=== PATIENT | female | born 1975 | race African-American/Black ===

== ENCOUNTER 2017-05-08 15:51 | Observation (INO) | payer OTHER ==
[2017-05-08] VITALS (9 sets, daily range): BP systolic 177–235; BP diastolic 83–125; PULSE 77–106; RESP 13–22; TEMP 99.3; O2SAT 93–98
[~2017-05-08 15:51] MED LIST: AMLO10 PO; CLON0.2T PO; HYDR25TA5 PO; LISI40TA PO; METO-309 PO; METR0.7528 VAGINAL; VENTAER INH
[2017-05-08] MEDS ORDERED: IOHEXOL 350 MG/ML 10 ML VIAL (for RAD DIAG) IVCONTRAST ONE (15:52)
[2017-05-08] MEDS ORDERED: SODIUM CHLORIDE 0.9% FLUSH 10 ML FLUSH IVF PRN (16:15)
[2017-05-08] MEDS ORDERED: methylPREDNISolone SOD SUCC 125 MG/2 ML VIAL IV PUSH ONE (16:15)
[2017-05-08] MEDS ORDERED: RESP: ALBUTEROL 2.5 MG/IPRATROPIUM 0.5 MG NEB (SCH) NEB ONE (16:15)
--- NOTE | 2017-05-08 16:41 | PD ---
HPI Chief Complaint: Respiratory Symptoms Time Seen by Provider: 16:12 Travel History International Travel<30 days: No Contact w/Intl Traveler<30days: No Traveled to known affect area: No History of Present Illness HPI Patient is a 41 year old female presents to the ER for evaluation of SOB. Patient states was told had a weak heart and she has presented to the ER and been admitted multiple times recently and continues to remain SOB. States that she also has COPD. States she took inhaler at home without relief. Symptoms gradually worsening, not relieved by inhaler, not associated with swelling of legs, fever, cough or chest pain, and context as above. PFSH Past Medical History Hx Anticoagulant Therapy: No Anemia: Yes Autoimmune Disease: No Cancer: No Cardiovascular Problems: Yes (HTN) Chemotherapy: No COPD: Yes Cerebrovascular Accident: No Diabetes: Yes Patient Takes Glucophage: No Diminished Hearing: No Endocrine: No Glaucoma: No Genitourinary: No Hepatitis: No Hiatal Hernia: No Hypertension: Yes Immune Disorder: No Implanted Vascular Access Dvce: No Musculoskeletal: Yes Neurologic: Yes Psychiatric: No Reproductive: Yes (IRREGULAR PERIODS ) Respiratory: Yes (COPD) Migraines: Yes Seizures: No Sleep Apnea: Yes Thyroid Disease: No PNEUMOCCOCAL Vaccine (Year): 2009 ?: Not Menopausal: Yes : 3 Para: 0 Miscarriage: 3 Ovarian Cysts: Yes Past Surgical History Abdominal Surgery: Yes (hernia repair & 04/2013.) AICD: No Arteriovenous Shunt: No Cholecystectomy: Yes Gynecologic Surgery: Yes (HYSTERECTOMY, LEFT SALPINGOTOMY AND LEFT OOPHORECTOMY ) Hysterectomy: Yes Insulin Pump: No Joint Replacement: No Pacemaker: No Other Surgery: Yes Family History Family Myocardial Infarction: Yes Social History Alcohol Use: Yes (occ) Tobacco Use: Yes Substance Use: No Allergies-Medications (Allergen,Severity, Reaction): Coded Allergies: naproxen (Unverified Allergy, Severe, SOB, 12/25/16) ALL NSAIDS penicillin G (Unverified Allergy, Severe, HIVES, SOB, 12/25/16) tomato (Unverified Allergy, Mild, ITCH, 12/25/16) aspirin (Unverified Adverse Reaction, Intermediate, "HEART RACES", 12/25/16 ) Reported Meds & Prescriptions Reported Meds & Active Scripts Active Reported Lopressor (Metoprolol Tartrate) 50 Mg Tab 25 Mg PO BID Norvasc (Amlodipine Besylate) 10 Mg Tab 10 Mg PO DAILY Lisinopril 40 Mg Tab 40 Mg PO DAILY Hydrochlorothiazide 25 Mg Tab 25 Mg PO DAILY Ventolin Hfa 18 GM Inh (Albuterol Sulfate) 90 Mcg/Act Aer 1 Puff INH Q4H PRN Review of Systems Except as stated in HPI: all other systems reviewed are Neg Physical Exam Narrative GENERAL: WD/WN morbidly obese in minimal increased work of breathing. SKIN: Warm and dry. HEAD: Atraumatic. Normocephalic. EYES: Pupils equal and round. No scleral icterus. No injection or drainage. ENT: No nasal bleeding or discharge. Mucous membranes pink and moist. NECK: Trachea midline. No JVD. CARDIOVASCULAR: Regular rate and rhythm. RESPIRATORY: No accessory muscle use. inspiratory and expiratory wheezing and rhonchi. minimally tachypneic. Breath sounds equal bilaterally. GASTROINTESTINAL: Abdomen soft, non-tender, nondistended. Hepatic and splenic margins not palpable. MUSCULOSKELETAL: Extremities without clubbing, cyanosis, or edema. No obvious deformities. NEUROLOGICAL: Awake and alert. No obvious cranial nerve deficits. Motor grossly within normal limits. Five out of 5 muscle strength in the arms and legs. Normal speech. PSYCHIATRIC: Appropriate mood and affect; insight and judgment normal. Data Data Last Documented VS Vital Signs Date Time Temp Pulse Resp B/P (MAP) Pulse Ox O2 Delivery O2 Flow Rate FiO2 05/08/17 18:53 101 20 225/111 (149) 96 Room Air 05/08/17 15:55 99.3 Orders Orders Electrocardiogram (05/08/17 16:12) Complete Blood Count With Diff (05/08/17 16:12) Comprehensive Metabolic Panel (05/08/17 16:12) Magnesium (Mg) (05/08/17 16:12) Prothrombin Time / Inr (Pt) (05/08/17 16:12) Act Partial Throm Time (Ptt) (05/08/17 16:12) Troponin I (05/08/17 16:12) Ecg Monitoring (05/08/17 16:12) Iv Access Insert/Monitor (05/08/17 16:12) Oximetry (05/08/17 16:12) Oxygen Administration (05/08/17 16:12) Sodium Chloride 0.9% Flush (Ns Flush) (05/08/17 16:15) Chest, Pa & Lat (05/08/17 16:12) Influenzae A/B Antigen (05/08/17 16:12) Albuterol-Ipratropium Neb (Duoneb Neb) (05/08/17 16:15) Methylprednisolone So Succ Inj (Solumedr (05/08/17 16:15) Ct Pulmonary Angiogram (05/08/17 ) Iohexol 350 Inj (Omnipaque 350 Inj) (05/08/17 15:52) Hydralazine Inj (Apresoline Inj) (05/08/17 20:30) Admit Order (Ed Use Only) (05/08/17 ) Labs Laboratory Tests Test 05/08/17 16:30 White Blood Count 7.1 TH/MM3 Red Blood Count 5.23 MIL/MM3 Hemoglobin 15.3 GM/DL Hematocrit 46.3 % Mean Corpuscular Volume 88.5 FL Mean Corpuscular Hemoglobin 29.2 PG Mean Corpuscular Hemoglobin Concent 33.0 % Red Cell Distribution Width 14.3 % Platelet Count 282 TH/MM3 Mean Platelet Volume 9.5 FL Neutrophils (%) (Auto) 53.1 % Lymphocytes (%) (Auto) 36.6 % Monocytes (%) (Auto) 7.8 % Eosinophils (%) (Auto) 1.8 % Basophils (%) (Auto) 0.7 % Neutrophils # (Auto) 3.8 TH/MM3 Lymphocytes # (Auto) 2.6 TH/MM3 Monocytes # (Auto) 0.6 TH/MM3 Eosinophils # (Auto) 0.1 TH/MM3 Basophils # (Auto) 0.1 TH/MM3 CBC Comment DIFF FINAL Differential Comment Prothrombin Time 10.0 SEC Prothromb Time International Ratio 1.0 RATIO Activated Partial Thromboplast Time 26.8 SEC Blood Urea Nitrogen 15 MG/DL Creatinine 1.05 MG/DL Random Glucose 93 MG/DL Total Protein 7.6 GM/DL Albumin 3.4 GM/DL Calcium Level 9.1 MG/DL Magnesium Level 1.7 MG/DL Alkaline Phosphatase 76 U/L Aspartate Amino Transf (AST/SGOT) 16 U/L Alanine Aminotransferase (ALT/SGPT) 33 U/L Total Bilirubin 0.4 MG/DL Sodium Level 143 MEQ/L Potassium Level 3.7 MEQ/L Chloride Level 109 MEQ/L Carbon Dioxide Level 28.6 MEQ/L Anion Gap 5 MEQ/L Estimat Glomerular Filtration Rate 70 ML/MIN Troponin I LESS THAN 0.02 NG/ML MDM Medical Decision Making Medical Screen Exam Complete: Yes Emergency Medical Condition: Yes Differential Diagnosis copd exacerbation, pneumonia, atelectasis, pe, chf unlikely. Narrative Course Patient roomed in ER. Despite treatments, solumedrol patient remaining with fairly low sats down to 90% on room air. Last 24 hours Impressions Chest X-Ray 05/08/17 1612 Signed Impressions: Service Date/Time: Monday, May 08, 2017 16:39 - CONCLUSION: Mild cardiomegaly with generalized interstitial prominence and mild left basilar airspace disease. Joshua Gambino MD CT Angiography 05/08/17 0000 Signed Impressions: Service Date/Time: Monday, May 08, 2017 19:08 - CONCLUSION: 1. No CT evidence of pulmonary embolism. 2. Mild inferior lingula and right middle lobe wedge-shaped consolidation, likely atelectasis. 3. Minimal bibasilar opacities primarily in the anterior upper lobes which may reflect volume loss or subtle inflammatory/infectious airspace disease. 4. Mild cardiomegaly. Sergei Mireles MD patient discussed with Dr. Donis for observation status for persistent SOB and she is agreeable. Diagnosis Primary Impression: COPD exacerbation Admitting Information Admitting Physician Requests: Observation Condition: Stable Rom Rodriguez MD May 08, 2017 16:41
[2017-05-08 16:51] LABS: AUTOMATED NEUTROPHIL # 3.8 TH/MM3 (1.8-7.7); BASOPHIL # 0.1 TH/MM3 (0-0.2); BASOPHIL % 0.7 % (0.0-2.0); EOSINOPHIL # 0.1 TH/MM3 (0-0.4); EOSINOPHIL % 1.8 % (0.0-4.0); HEMATOCRIT 46.3 % (35.0-46.0); HEMOGLOBIN 15.3 GM/DL (11.6-15.3); LYMPH % 36.6 % (9.0-44.0); LYMPHOCYTE # 2.6 TH/MM3 (1.0-4.8); MEAN CELL VOLUME 88.5 FL (80.0-100.0); MEAN CORPUSCULAR HEMOGLOBIN 29.2 PG (27.0-34.0); MEAN PLATELET VOLUME 9.5 FL (7.0-11.0); MONO % 7.8 % (0.0-8.0); MONOCYTE # 0.6 TH/MM3 (0-0.9); NEUT % 53.1 % (16.0-70.0); PLATELET COUNT 282 TH/MM3 (150-450); RED BLOOD COUNT 5.23 MIL/MM3 (4.00-5.30); RED CELL DISTRIBUTION WIDTH 14.3 % (11.6-17.2); WHITE BLOOD COUNT 7.1 TH/MM3 (4.0-11.0)
--- NOTE | 2017-05-08 16:51 | RADRPT ---
EXAM DATE/TIME: 05/08/2017 16:39 [facility] COMPARISON: CHEST PA & LAT, August 28, 2014, 16:36. INDICATIONS : Chest congestion, wheezing for 1 week MEDICAL HISTORY : Chronic obstructive pulmonary disease. SURGICAL HISTORY : None. ENCOUNTER: Initial ACUITY: 1 week PAIN SCORE: 5/10 LOCATION: Bilateral chest FINDINGS: Heart is mildly enlarged. Interstitial vascular prominence is evident throughout both lungs. There is mild airspace disease in the left base. Osseous structures are intact. CONCLUSION: Mild cardiomegaly with generalized interstitial prominence and mild left basilar airspace disease. Joshua Gambino MD on May 08, 2017 at 16:49 Board Certified Radiologist. This report was verified electronically.
[2017-05-08 17:04] LABS: ALBUMIN 3.4 GM/DL (3.4-5.0); ALT (GPT) 33 U/L (10-53); AST (GOT) 16 U/L (15-37); BICARBONATE 28.6 MEQ/L (21.0-32.0); BLOOD UREA NITROGEN 15 MG/DL (7-18); CALCIUM 9.1 MG/DL (8.5-10.1); CHLORIDE 109 MEQ/L (98-107); CREATININE 1.05 MG/DL (0.50-1.00); GLOMERULAR FILTRATION RATE 70 ML/MIN (>89); GLUCOSE,RANDOM 93 MG/DL (74-106); MAGNESIUM 1.7 MG/DL (1.5-2.5); SODIUM (NA) 143 MEQ/L (136-145)
[2017-05-08 17:07] LABS: ALKALINE PHOSPHATASE 76 U/L (45-117); TOTAL BILIRUBIN ADULT 0.4 MG/DL (0.2-1.0); TOTAL PROTEIN 7.6 GM/DL (6.4-8.2); TROPONIN I LESS THAN 0.02 NG/ML (0.02-0.05)
--- NOTE | 2017-05-08 19:48 | RADRPT ---
EXAM DATE/TIME: 05/08/2017 19:08 [facility] COMPARISON: CT PULMONARY ANGIOGRAM, August 28, 2014, 18:27. INDICATIONS : Coughing,congestion,shortness of breath,chest pain. IV CONTRAST: 75 cc Omnipaque 350 (iohexol) IV RADIATION DOSE: 25.01 CTDIvol (mGy) MEDICAL HISTORY : Cardiovascular disease. Hypertension. Chronic obstructive pulmonary disease.Diabetes SURGICAL HISTORY : Hysterectomy. Hernia repair ENCOUNTER: Initial ACUITY: 4 - 6 days PAIN SCALE: 7/10 LOCATION: chest TECHNIQUE: Volumetric scanning of the chest was performed using a pulmonary embolism protocol MIP images were re constructed. Using automated exposure control and adjustment of the mA and/or kV according to patien t size, radiation dose was kept as low as reasonably achievable to obtain optimal diagnostic quality images. DICOM format image data is available electronically for review and comparison. Follow-up recommendations for detected pulmonary nodules are based at a minimum on nodule size and pa tient risk factors according to Fleischner Society Guidelines. FINDINGS: PULMONARY ARTERIES: No filling defects are seen in the pulmonary arteries through the segmental level. LUNGS: Mild wedge-shaped consolidation in the lingula and right middle lobes. Subtle groundglass opacities p rimarily in the anterior upper lobes bilaterally. PLEURAE: There is no pleural thickening or pleural effusion. MEDIASTINUM: There is good visualization of the great vessels of the middle mediastinum. Mild cardiomegaly. No black dence of mediastinal or hilar adenopathy/mass. MUSCULOSKELETAL: Within normal limits for patient age. MISCELLANEOUS: The visualized upper abdominal organs demonstrate no acute abnormality. CONCLUSION: 1. No CT evidence of pulmonary embolism. 2. Mild inferior lingula and right middle lobe wedge-shaped consolidation, likely atelectasis. 3. Minimal bibasilar opacities primarily in the anterior upper lobes which may reflect volume loss or subtle inflammatory/infectious airspace disease. 4. Mild cardiomegaly. Sregei Mireles MD on May 08, 2017 at 19:43 Board Certified Radiologist. This report was verified electronically.
[2017-05-08] MEDS ORDERED: hydrALAZINE HCL 20 MG/ML VIAL IV PUSH ONE (20:30)
[2017-05-08] MEDS ORDERED: ACETAMINOPHEN 325 MG TAB PO PRN (20:45)
[2017-05-08] MEDS ORDERED: ONDANSETRON HCL 4 MG/2 ML VIAL IVP PRN (20:45)
[2017-05-08] MEDS ORDERED: SODIUM CHLORIDE 0.9% FLUSH 10 ML FLUSH IV FLUSH PRN (20:45)
[2017-05-08] MEDS ORDERED: RESP: ALBUTEROL 2.5 MG/IPRATROPIUM 0.5 MG NEB (PRN) NEB (20:45)
[2017-05-08] MEDS ORDERED: MAGNESIUM HYDROXIDE SUSP 30 ML CUP PO PRN (20:45)
[2017-05-08] MEDS ORDERED: NALOXONE HCL 0.4 MG/ML AMP IV PUSH PRN (20:45)
[2017-05-08] MEDS ORDERED: DEXTROSE 50% IN WATER 50 ML VIAL(D50) IV PUSH PRN (20:45)
[2017-05-08] MEDS ORDERED: GLUCAGON 1 MG/ML VIAL OTHER PRN (20:45)
[2017-05-08] MEDS ORDERED: SENNOSIDES 8.6 MG TAB PO PRN (20:45)
[2017-05-08] MEDS ORDERED: BISACODYL 10 MG SUPP RECTAL PRN (20:45)
--- NOTE | 2017-05-08 21:10 | HHI.HP ---
[facility] Unknown Admission Diagnosis COPD exacerbation. Diagnoses: Travel History International Travel<30 Days: No Contact w/Intl Traveler <30 Da: No Traveled to Known Affected Are: No History of Present Illness 41-year-old female with past medical history significant for COPD, hypertension and borderline diabetes mellitus presents to the emergency department with increased dyspnea and wheezing. The patient reports that Saturday morning she awoke with shortness of breath wheezing and subjective fever/chills. She denies any cough productive of sputum. She states that the illness lasted for 24 hours however her breathing never recovered. She presents with a temperature 93.3, pulse 97, respiratory rate 13, BP 235/125 and pulse ox 93% on room air. Chest CT showed mild inferior lingula and right middle lobe wedge- shaped consolidation likely atelectasis with minimal wall by basilar opacities which may reflect volume loss were subtle inflammatory/infectious airspace disease. No leukocytosis. Review of Systems Denies fever or chills Denies blurry vision, otorrhea, rhinorrhea Denies sore throat and cough No chest pain, palpitations, positive shortness of breath No abdominal pain Denies constipation/diarrhea/nausea/vomiting Denies muscle pain/weakness No rashes Past Family Social History Past Medical History COPD Hypertension Borderline diabetes mellitus Past Surgical History Hysterectomy Left carpal tunnel release Hernia repair 2 Cholecystectomy Reported Medications Reported Meds & Active Scripts Active Reported Lopressor (Metoprolol Tartrate) 50 Mg Tab 25 Mg PO BID Norvasc (Amlodipine Besylate) 10 Mg Tab 10 Mg PO DAILY Lisinopril 40 Mg Tab 40 Mg PO DAILY Hydrochlorothiazide 25 Mg Tab 25 Mg PO DAILY Ventolin Hfa 18 GM Inh (Albuterol Sulfate) 90 Mcg/Act Aer 1 Puff INH Q4H PRN Hydralazine 25 mg q6h Allergies: Coded Allergies: naproxen (Unverified Allergy, Severe, SOB, 12/25/16) ALL NSAIDS penicillin G (Unverified Allergy, Severe, HIVES, SOB, 12/25/16) tomato (Unverified Allergy, Mild, ITCH, 12/25/16) aspirin (Unverified Adverse Reaction, Intermediate, "HEART RACES", 12/25/16 ) Family History Both parents with CAD. Social History Rare tobacco but does have a [id number] history of smoking. Occasional alcohol. Denies illicit drugs. Physical Exam Vital Signs Vital Signs Date Time Temp Pulse Resp B/P (MAP) Pulse Ox O2 Delivery O2 Flow Rate FiO2 05/08/17 20:57 106 18 214/104 (140) 96 Room Air 05/08/17 18:53 101 20 225/111 (149) 96 Room Air 05/08/17 16:27 Room Air 05/08/17 16:13 86 22 221/113 (149) 96 05/08/17 15:55 99.3 97 13 235/125 (161) 93 Room Air Physical Exam GENERAL: Obese, female sitting up in bed talking SKIN: No rashes, ecchymoses or lesions. Cool and dry. HEAD: Atraumatic. Normocephalic. No temporal or scalp tenderness. EYES: Pupils equal round and reactive. Extraocular motions intact. No scleral icterus. No injection or drainage. ENT: Nose without bleeding, purulent drainage or septal hematoma. Throat without erythema, tonsillar hypertrophy or exudate. Uvula midline. Airway patent. NECK: Trachea midline. No JVD or lymphadenopathy. Supple, nontender, no meningeal signs. CARDIOVASCULAR: Regular rate and rhythm without murmurs, gallops, or rubs. RESPIRATORY: Bilateral expiratory wheezes. GASTROINTESTINAL: Abdomen soft, non-tender, nondistended. No hepato-splenomegaly , or palpable masses. No guarding. MUSCULOSKELETAL: Extremities without clubbing, cyanosis, or edema. No joint tenderness, effusion, or edema noted. No calf tenderness. NEUROLOGICAL: Awake and alert. Cranial nerves II through XII intact. Motor and sensory grossly within normal limits. Normal speech. Laboratory Laboratory Tests Test 05/08/17 16:30 White Blood Count 7.1 Red Blood Count 5.23 Hemoglobin 15.3 Hematocrit 46.3 Mean Corpuscular Volume 88.5 Mean Corpuscular Hemoglobin 29.2 Mean Corpuscular Hemoglobin Concent 33.0 Red Cell Distribution Width 14.3 Platelet Count 282 Mean Platelet Volume 9.5 Neutrophils (%) (Auto) 53.1 Lymphocytes (%) (Auto) 36.6 Monocytes (%) (Auto) 7.8 Eosinophils (%) (Auto) 1.8 Basophils (%) (Auto) 0.7 Neutrophils # (Auto) 3.8 Lymphocytes # (Auto) 2.6 Monocytes # (Auto) 0.6 Eosinophils # (Auto) 0.1 Basophils # (Auto) 0.1 CBC Comment DIFF FINAL Differential Comment Prothrombin Time 10.0 Prothromb Time International Ratio 1.0 Activated Partial Thromboplast Time 26.8 Blood Urea Nitrogen 15 Creatinine 1.05 Random Glucose 93 Total Protein 7.6 Albumin 3.4 Calcium Level 9.1 Magnesium Level 1.7 Alkaline Phosphatase 76 Aspartate Amino Transf (AST/SGOT) 16 Alanine Aminotransferase (ALT/SGPT) 33 Total Bilirubin 0.4 Sodium Level 143 Potassium Level 3.7 Chloride Level 109 Carbon Dioxide Level 28.6 Anion Gap 5 Estimat Glomerular Filtration Rate 70 Troponin I LESS THAN 0.02 Date/Time Source Procedure Growth Status 05/08/17 16:30 Nasal Washing Influenza Types A,B Antigen (DAVID) - Final NEGATIVE FOR FLU A AND B ANTIGEN.... Complete Result Diagram: 05/08/17 1630 05/08/17 1630 Caprini VTE Risk Assessment Caprini VTE Risk Assessment: No/Low Risk (score <= 1) Caprini Risk Assessment Model Point Value = 1 Point Value = 2 Point Value = 3 Point Value = 5 Age 41-60 Minor surgery BMI > 25 kg/m2 Swollen legs Varicose veins or History of unexplained or recurrent spontaneous Oral contraceptives or hormone replacement Sepsis (< 1 month) Serious lung disease, including pneumonia (< 1 month) Abnormal pulmonary function Acute myocardial infarction Congestive heart failure (< 1 month) History of inflammatory bowel disease Medical patient at bed rest Age 61-74 Arthroscopic surgery Major open surgery (> 45 min) Laparoscopic surgery (> 45 min) Malignancy Confined to bed (> 72 hours) Immobilizing plaster cast Central venous access Age >= 75 History of VTE Family history of VTE Factor V Leiden Prothrombin [id number] Lupus anticoagulant Anticardiolipin antibodies Elevated serum homocysteine Heparin-induced thrombocytopenia Other congenital or acquired thrombophilia Stroke (< 1 month) Elective arthroplasty Hip, pelvis, or leg fracture Acute spinal cord injury (< 1 month) Prophylaxis Regimen Total Risk Factor Score Risk Level Prophylaxis Regimen 0-1 Low Early ambulation 2 Moderate Order ONE of the following: *Sequential Compression Device (SCD) *Heparin 5000 units SQ BID 3-4 Higher Order ONE of the following medications: *Heparin 5000 units SQ TID *Enoxaparin/Lovenox 40 mg SQ daily (WT < 150 kg, CrCl > 30 mL/min) *Enoxaparin/Lovenox 30 mg SQ daily (WT < 150 kg, CrCl > 10-29 mL/min) *Enoxaparin/Lovenox 30 mg SQ BID (WT < 150 kg, CrCl > 30 mL/min) AND/OR *Sequential Compression Device (SCD) 5 or more Highest Order ONE of the following medications: *Heparin 5000 units SQ TID (Preferred with Epidurals) *Enoxaparin/Lovenox 40 mg SQ daily (WT < 150 kg, CrCl > 30 mL/min) *Enoxaparin/Lovenox 30 mg SQ daily (WT < 150 kg, CrCl > 10-29 mL/min) *Enoxaparin/Lovenox 30 mg SQ BID (WT < 150 kg, CrCl > 30 mL/min) AND *Sequential Compression Device (SCD) Assessment and Plan Assessment and Plan Assessment/plan: 1. COPD exacerbation Patient afebrile, without leukocytosis CT results as stated in history of present illness Denies cough or increased sputum production No indication for antibiotics at this time IV steroids Duo nebs Patient reports that she has a children's tutor, Dr. Santana in [place] who does not have her on inhaled steroids 2. Resistant hypertension Patient reports taking all of her home blood pressure medications today, BP in the ED 235/125 She was recently started on hydralazine Continue home amlodipine, hydralazine, hydrochlorothiazide, lisinopril 3. Borderline diabetes mellitus SSI Monitor blood glucose [facility] Heart healthy diet Electrolytes: monitor and replete prn SCDs Kailey Donis MD May 08, 2017 21:10
[2017-05-08] MEDS: hydrALAZINE HCL 25 MG TAB PO SCH (21:29)
[2017-05-08] MEDS: SODIUM CHLORIDE 0.9% FLUSH 10 ML FLUSH IV FLUSH SCH (21:29)
[2017-05-08] MEDS: METOPROLOL TARTRATE 50 MG TAB PO SCH (21:29)
[2017-05-08] MEDS: RESP: ALBUTEROL 2.5 MG/IPRATROPIUM 0.5 MG NEB (SCH) NEB (21:38)
[2017-05-08] MEDS ORDERED: cloNIDine HCL 0.2 MG TAB PO ONE (23:00)
[2017-05-08] MEDS: HEPARIN SODIUM - SQ 10,000 UNITS/ML VIAL SQ SCH (23:18)
[2017-05-08] MEDS: INSULIN ASPART SUPPLEMENTAL SCALE SQ SCH (23:18)
[2017-05-09 01:35] VITALS: BP 178/89; PULSE 84; RESP 20; TEMP 99.3; O2SAT 94
[2017-05-09] MEDS: methylPREDNISolone SOD SUCC 40 MG/1 ML VIAL IV PUSH SCH ×5 (02:57→23:19)
[2017-05-09] MEDS: hydrALAZINE HCL 25 MG TAB PO SCH ×5 (02:57→23:20)
[2017-05-09] MEDS: RESP: ALBUTEROL 2.5 MG/IPRATROPIUM 0.5 MG NEB (SCH) NEB ×6 (03:01→23:27)
[2017-05-09 04:42] VITALS: BP 173/93; PULSE 90; RESP 22; TEMP 98.6; O2SAT 96
[2017-05-09 07:06] LABS: AUTOMATED NEUTROPHIL # 15.2 TH/MM3 (1.8-7.7); BASOPHIL # 0.1 TH/MM3 (0-0.2); BASOPHIL % 0.4 % (0.0-2.0); HEMATOCRIT 48.6 % (35.0-46.0); LYMPH % 7.8 % (9.0-44.0); LYMPHOCYTE # 1.3 TH/MM3 (1.0-4.8); MEAN CELL VOLUME 88.5 FL (80.0-100.0); MEAN CORPUSCULAR HEMOGLOBIN 29.1 PG (27.0-34.0); MEAN CORPUSCULAR HGB CONC 32.9 % (32.0-36.0); MEAN PLATELET VOLUME 9.8 FL (7.0-11.0); MONO % 1.4 % (0.0-8.0); MONOCYTE # 0.2 TH/MM3 (0-0.9); NEUT % 90.4 % (16.0-70.0); PLATELET COUNT 308 TH/MM3 (150-450); RED BLOOD COUNT 5.49 MIL/MM3 (4.00-5.30); RED CELL DISTRIBUTION WIDTH 14.5 % (11.6-17.2); WHITE BLOOD COUNT 16.8 TH/MM3 (4.0-11.0)
[2017-05-09 07:20] VITALS: BP 196/102; PULSE 92; RESP 20; TEMP 98.7; O2SAT 96
[2017-05-09 07:21] LABS: BICARBONATE 20.7 MEQ/L (21.0-32.0); CALCIUM 9.8 MG/DL (8.5-10.1); CREATININE 0.96 MG/DL (0.50-1.00)
[2017-05-09] MEDS: HYDROCHLOROTHIAZIDE 25 MG TAB PO SCH (08:23)
[2017-05-09] MEDS: LISINOPRIL 20 MG TAB PO SCH (08:23)
[2017-05-09] MEDS: METOPROLOL TARTRATE 50 MG TAB PO SCH ×2 (08:24→23:36)
[2017-05-09] MEDS: HEPARIN SODIUM - SQ 10,000 UNITS/ML VIAL SQ SCH ×2 (08:25→23:19)
[2017-05-09] MEDS: INSULIN ASPART SUPPLEMENTAL SCALE SQ SCH ×4 (08:29→21:00)
[2017-05-09] MEDS ORDERED: cloNIDine HCL 0.2 MG TAB PO PRN (09:00)
[2017-05-09] MEDS ORDERED: LACTOBACILLUS ACIDOPHILUS TAB PO ONE (10:30)
[2017-05-09] MEDS ORDERED: BUDESONIDE-FORMOTEROL 160/4.5 MCG INHALER INH ONE (10:30)
[2017-05-09] MEDS ORDERED: ACETAMINOPHEN/HYDROcodone 325 MG/5 MG TAB PO PRN (10:30)
--- NOTE | 2017-05-09 10:33 | HHI.PR ---
Subjective Remarks Follow up for COPD exacerbation. The patient reports minimal improvement overnight. She reports continued shortness of breath, wheezing, and nonproductive hacking cough. Denies any fevers/chills overnight but did have subjective fevers prior to arrival. Her physician in private practice is Dr. Hardy, recently seen 2 weeks ago. She also recently saw her clinical trial associate Dr. Ceja, had stress test and echo which were reportedly negative for any blockages however has a "weak muscle" of the heart. Objective Vitals Vital Signs Date Time Temp Pulse Resp B/P (MAP) Pulse Ox O2 Delivery O2 Flow Rate FiO2 05/09/17 07:20 98.7 92 20 196/102 (133) 96 05/09/17 04:42 98.6 90 22 173/93 (119) 96 05/09/17 01:35 99.3 84 20 178/89 (118) 94 05/08/17 23:44 77 16 177/83 (114) 98 Room Air 05/08/17 23:22 94 16 187/94 (125) 05/08/17 22:22 97 16 182/93 (122) 97 Room Air 05/08/17 21:58 100 18 187/92 (123) 97 Room Air 05/08/17 21:30 102 18 200/104 (136) 97 Room Air 05/08/17 20:57 106 18 214/104 (140) 96 Room Air 05/08/17 18:53 101 20 225/111 (149) 96 Room Air 05/08/17 16:27 Room Air 05/08/17 16:13 86 22 221/113 (149) 96 05/08/17 15:55 99.3 97 13 235/125 (161) 93 Room Air I/O 05/08/17 05/08/17 05/08/17 05/09/17 05/09/17 05/09/17 07:00 15:00 23:00 07:00 15:00 23:00 Intake Total 400 ml Balance 400 ml Intake Oral 400 ml Result Diagram: 05/09/17 0635 05/09/17 0635 Imaging Last Impressions Chest X-Ray 05/08/17 1612 Signed Impressions: Service Date/Time: Monday, May 08, 2017 16:39 - CONCLUSION: Mild cardiomegaly with generalized interstitial prominence and mild left basilar airspace disease. Joshua F. Maki, MD CT Angiography 05/08/17 0000 Signed Impressions: Service Date/Time: Monday, May 08, 2017 19:08 - CONCLUSION: 1. No CT evidence of pulmonary embolism. 2. Mild inferior lingula and right middle lobe wedge-shaped consolidation, likely atelectasis. 3. Minimal bibasilar opacities primarily in the anterior upper lobes which may reflect volume loss or subtle inflammatory/infectious airspace disease. 4. Mild cardiomegaly. Sergei Mireles MD Objective Remarks GENERAL: Well-nourished, well-developed pleasant obese middle aged AA female patient in [facility]. SKIN: Warm and dry. No rash. HEENT: Normocephalic. Atraumatic.Pupils equal and round. Mucous membranes pink and moist. NECK: Supple. Trachea midline. CARDIOVASCULAR: Regular rate and rhythm. S1, S2 noted. No murmur appreciated. RESPIRATORY: No accessory muscle use. Significant diffuse scattered wheezing with occasional rhonchi. Breath sounds equal bilaterally. GASTROINTESTINAL: Abdomen soft, nontender, nondistended. Normoactive bowel sounds x4. MUSCULOSKELETAL: No obvious deformities. Extremities without clubbing, cyanosis , or edema. Calves nontender bilaterally. NEUROLOGICAL: Awake and alert. No obvious cranial nerve deficits. Motor grossly within normal limits. Normal speech. PSYCHIATRIC: Appropriate mood and affect; insight and judgment normal. Medications and IVs Current Medications Medications (Trade) Dose Ordered Sig/Helen Route Start Time Stop Time Status Last Admin (NS Flush) 2 ml UNSCH PRN IVF 05/08/17 16:15 (NS Flush) 2 ml UNSCH PRN IV FLUSH 05/08/17 20:45 (NS Flush) 2 ml BID IV FLUSH 05/08/17 21:00 05/08/17 21:29 (Tylenol) 650 mg Q4H PRN PO 05/08/17 20:45 (Zofran Inj) 4 mg Q6H PRN IVP 05/08/17 20:45 (Heparin Inj) 5,000 units Q12H SQ 05/08/17 21:00 05/09/17 08:25 (Narcan Inj) 0.4 mg UNSCH PRN IV PUSH 05/08/17 20:45 (Milk Of Magnesia Liq) 30 ml Q12H PRN PO 05/08/17 20:45 (Senokot) 17.2 mg Q12H PRN PO 05/08/17 20:45 (Dulcolax Supp) 10 mg DAILY PRN RECTAL 05/08/17 20:45 (D50w (Vial) Inj) 50 ml UNSCH PRN IV PUSH 05/08/17 20:45 (Glucagon Inj) 1 mg UNSCH PRN OTHER 05/08/17 20:45 (NovoLOG SUPPLEMENTAL SCALE) 1 ACHS SLIDING SCALE SQ 05/08/17 21:00 05/08/17 23:18 (Duoneb Neb) 1 ampule Q4HR NEB PRN NEB 05/08/17 20:45 (Duoneb Neb) 1 ampule Q6HR NEB NEB 05/08/17 22:00 05/09/17 07:39 (Norvasc) 10 mg DAILY PO 05/09/17 09:00 05/09/17 08:24 (Hydrodiuril) 25 mg DAILY PO 05/09/17 09:00 05/09/17 08:23 (Lopressor) 25 mg BID PO 05/08/17 21:00 05/09/17 08:24 (Prinivil) 40 mg DAILY PO 05/09/17 09:00 05/09/17 08:23 (SoluMEDROL INJ) 40 mg Q6HR IV PUSH 05/09/17 00:00 05/09/17 06:47 (Catapres) 0.2 mg Q6H PRN PO 05/09/17 09:00 (Apresoline) 50 mg Q6HR PO 05/09/17 12:00 UNV (Levaquin) 750 mg DAILY PO 05/09/17 10:30 05/14/17 10:29 UNV (Lactinex) 1 tab Q12HR PO 05/09/17 21:00 UNV (Lactinex) 1 tab ONCE ONCE PO 05/09/17 10:30 05/09/17 10:31 UNV (Tessalon) 100 mg TID PO 05/09/17 13:00 UNV (Robitussin Dm 200-20 Mg/10 ml Liq) 10 ml Q4H PRN PO 05/09/17 10:30 UNV A/P Assessment and Plan 41-year-old female with past medical history significant for COPD, hypertension and borderline diabetes mellitus presents to the ED with a 1 week history of worsening dyspnea and wheezing. Acute COPD Exacerbation: CXR images reviewed, shows mild left basilar airspace disease. CT-PA images reviewed, negative for PE, shows mild inferior lingula and RML consolidation; minimal bibasilar opacities primarily in the anterior upper lobes which may reflect volume loss or subtle inflammatory/infectious airspace disease. Patient afebrile, no leukocytosis, however in light of cough and subjective fevers/chills, will initiate antibiotics. -Start on Levaquin 750mg qd x5days with probiotic -Continue steroids with IV solumedrol 40mg q6h helen -Continue duonebs, increase to q4h helen and q4h prn -Start on Symbicort bid -Recommend outpatient f/up with physician in private practice Dr. Hardy after discharge Hypertensive Urgency secondary to Accelerated Hypertension: BP in the ED 235/ 125. Patient reports compliance with medications, recently started on hydralazine in addition to norvasc, lisinopril, HCTZ -Continue patient's home amlodipine 10mg qd, hydralazine 25mg qid, hydrochlorothiazide 25mg qd, lisinopril 40mg qd -BP still not controlled, increase hydralazine to 50mg qid -Continue clonidine prn Borderline diabetes mellitus: patient recently told by her PCP she is borderline diabetic but does not require medications yet. -Expect BG to increase while on steroids -Monitor Accu-checks and cover with SSI DVT Prophylaxis: Heparin sq Discharge Planning Not yet ready for discharge, pending further clinical improvement. Possible discharge tomorrow. Anila Mayer PA-C May 09, 2017 10:33 am
[2017-05-09] MEDS: SODIUM CHLORIDE 0.9% FLUSH 10 ML FLUSH IV FLUSH SCH ×2 (11:09→21:00)
[2017-05-09] MEDS: LEVOFLOXACIN 750 MG TAB PO SCH (11:40)
[2017-05-09] MEDS: guaiFENesin/DEXTROMETHORPHAN 200 MG/20 MG/10 ML CUP PO PRN ×2 (11:40→23:20)
[2017-05-09] MEDS: BUDESONIDE-FORMOTEROL 160/4.5 MCG INHALER INH SCH ×2 (11:41→23:18)
[2017-05-09 13:00] VITALS: BP 161/90; PULSE 92; RESP 18; TEMP 98.5; O2SAT 97
[2017-05-09] MEDS: BENZONATATE 100 MG CAP PO SCH ×3 (13:00→18:34)
[2017-05-09 16:09] VITALS: BP_SYST 182; BP_SYST 207; BP_DIAS 66; BP_DIAS 95; PULSE 93; RESP 18; TEMP 98.6; O2SAT 98
[2017-05-09 20:14] VITALS: BP 139/70; PULSE 99; RESP 20; TEMP 98.1; O2SAT 95
--- NOTE | 2017-05-09 23:15 | EKG ---
Date Performed: 05/08/2017 Time Performed: 16:23:09 PTAGE: 41 years EKG: Sinus rhythm LEFT ANTERIOR FASCICULAR BLOCK NONSPECIFIC T-WAVE ABNORMALITY ABNORMAL ECG INTERPRETATION BASED ON A DEFAULT AGE OF 39 YEARS PREVIOUS TRACING : 12/23/2015 01.35 Compared to prior tracing no significant change DOCTOR: Raman Vargas Interpretating Date/Time 05/09/2017 23:13:20
[2017-05-09] MEDS: LACTOBACILLUS ACIDOPHILUS TAB PO SCH (23:19)
[2017-05-10 01:00] VITALS: BP 162/80; PULSE 83; RESP 18; O2SAT 94
[2017-05-10] MEDS: RESP: ALBUTEROL 2.5 MG/IPRATROPIUM 0.5 MG NEB (SCH) NEB ×2 (02:40→08:08)
[2017-05-10] MEDS: methylPREDNISolone SOD SUCC 40 MG/1 ML VIAL IV PUSH SCH ×2 (06:10→11:36)
[2017-05-10] MEDS: hydrALAZINE HCL 25 MG TAB PO SCH ×2 (06:10→11:37)
[2017-05-10 06:13] VITALS: BP 174/102; PULSE 96; RESP 18; O2SAT 90
[2017-05-10 07:56] VITALS: BP 185/92; PULSE 86; RESP 18; TEMP 98; O2SAT 91
[2017-05-10] MEDS: INSULIN ASPART SUPPLEMENTAL SCALE SQ SCH (08:00)
[2017-05-10 08:11] VITALS: O2SAT 97
[2017-05-10] MEDS: BENZONATATE 100 MG CAP PO SCH ×2 (08:47→11:37)
[2017-05-10] MEDS: LACTOBACILLUS ACIDOPHILUS TAB PO SCH (08:47)
[2017-05-10] MEDS: METOPROLOL TARTRATE 50 MG TAB PO SCH (08:47)
[2017-05-10] MEDS: LISINOPRIL 20 MG TAB PO SCH (08:48)
[2017-05-10] MEDS: HYDROCHLOROTHIAZIDE 25 MG TAB PO SCH (08:48)
[2017-05-10] MEDS: SODIUM CHLORIDE 0.9% FLUSH 10 ML FLUSH IV FLUSH SCH (08:48)
[2017-05-10] MEDS: HEPARIN SODIUM - SQ 10,000 UNITS/ML VIAL SQ SCH (09:00)
[2017-05-10] MEDS: LEVOFLOXACIN 750 MG TAB PO SCH (10:07)
--- NOTE | 2017-05-10 10:38 | HHI.PR ---
Subjective Remarks Follow up for COPD exacerbation, hypertension. The patient reports improvement of her shortness of breath and wheezing overnight. She still has a mild expiratory wheeze that improves after receiving neb treatment. Denies any chest pain. O2 sat 97% on room air. She wants to go home. She does not have a nebulizer machine at home. Objective Vitals Vital Signs Date Time Temp Pulse Resp B/P (MAP) Pulse Ox O2 Delivery O2 Flow Rate FiO2 05/10/17 08:11 97 21 05/10/17 07:56 98.0 86 18 185/92 (123) 91 05/10/17 06:13 96 18 174/102 (126) 90 05/10/17 01:00 83 18 162/80 (107) 94 05/09/17 20:14 98.1 99 20 139/70 (93) 95 05/09/17 16:09 98.6 93 18 207/95 (132) 98 182/66 (104) 05/09/17 13:00 98.5 92 18 161/90 (113) 97 I/O 05/09/17 05/09/17 05/09/17 05/10/17 05/10/17 05/10/17 07:00 15:00 23:00 07:00 15:00 23:00 Intake Total 400 ml 300 ml 300 ml Balance 400 ml 300 ml 300 ml Intake Oral 400 ml 300 ml 300 ml Result Diagram: 05/09/17 0635 05/09/17 0635 Imaging Last Impressions Chest X-Ray 05/08/17 1612 Signed Impressions: Service Date/Time: Monday, May 08, 2017 16:39 - CONCLUSION: Mild cardiomegaly with generalized interstitial prominence and mild left basilar airspace disease. Joshua Gambino MD CT Angiography 05/08/17 0000 Signed Impressions: Service Date/Time: Monday, May 08, 2017 19:08 - CONCLUSION: 1. No CT evidence of pulmonary embolism. 2. Mild inferior lingula and right middle lobe wedge-shaped consolidation, likely atelectasis. 3. Minimal bibasilar opacities primarily in the anterior upper lobes which may reflect volume loss or subtle inflammatory/infectious airspace disease. 4. Mild cardiomegaly. Sergei Mireles MD Objective Remarks GENERAL: Well-nourished, well-developed pleasant obese middle aged AA female patient in [facility]. SKIN: Warm and dry. No rash. HEENT: Normocephalic. Atraumatic.Pupils equal and round. Mucous membranes pink and moist. CARDIOVASCULAR: Regular rate and rhythm. S1, S2 noted. No murmur appreciated. RESPIRATORY: No accessory muscle use. Minimal expiratory wheezing, much improved. Breath sounds equal bilaterally. GASTROINTESTINAL: Abdomen soft, nontender, nondistended. Normoactive bowel sounds x4. MUSCULOSKELETAL: No obvious deformities. Extremities without clubbing, cyanosis , or edema. NEUROLOGICAL: Awake and alert. No obvious cranial nerve deficits. Motor grossly within normal limits. Normal speech. PSYCHIATRIC: Appropriate mood and affect; insight and judgment normal. Medications and IVs Current Medications Medications (Trade) Dose Ordered Sig/Helen Route Start Time Stop Time Status Last Admin (NS Flush) 2 ml UNSCH PRN IV FLUSH 05/08/17 20:45 (NS Flush) 2 ml BID IV FLUSH 05/08/17 21:00 05/10/17 08:48 (Tylenol) 650 mg Q4H PRN PO 05/08/17 20:45 (Zofran Inj) 4 mg Q6H PRN IVP 05/08/17 20:45 (Heparin Inj) 5,000 units Q12H SQ 05/08/17 21:00 05/09/17 23:19 (Narcan Inj) 0.4 mg UNSCH PRN IV PUSH 05/08/17 20:45 (Milk Of Magnesia Liq) 30 ml Q12H PRN PO 05/08/17 20:45 05/10/17 08:55 (Senokot) 17.2 mg Q12H PRN PO 05/08/17 20:45 (Dulcolax Supp) 10 mg DAILY PRN RECTAL 05/08/17 20:45 (D50w (Vial) Inj) 50 ml UNSCH PRN IV PUSH 05/08/17 20:45 (Glucagon Inj) 1 mg UNSCH PRN OTHER 05/08/17 20:45 (NovoLOG SUPPLEMENTAL SCALE) 1 ACHS SLIDING SCALE SQ 05/08/17 21:00 05/09/17 12:41 (Duoneb Neb) 1 ampule Q4HR NEB PRN NEB 05/08/17 20:45 (Norvasc) 10 mg DAILY PO 05/09/17 09:00 05/10/17 08:47 (Hydrodiuril) 25 mg DAILY PO 05/09/17 09:00 05/10/17 08:48 (Lopressor) 25 mg BID PO 05/08/17 21:00 05/10/17 08:47 (Prinivil) 40 mg DAILY PO 05/09/17 09:00 05/10/17 08:48 (SoluMEDROL INJ) 40 mg Q6HR IV PUSH 05/09/17 00:00 05/10/17 06:10 (Catapres) 0.2 mg Q6H PRN PO 05/09/17 09:00 05/09/17 16:38 (Apresoline) 50 mg Q6HR PO 05/09/17 12:00 05/10/17 06:10 (Levaquin) 750 mg DAILY PO 05/09/17 10:30 05/14/17 10:29 05/10/17 10:07 (Lactinex) 1 tab Q12HR PO 05/09/17 21:00 05/10/17 08:47 (Tessalon) 100 mg TID PO 05/09/17 13:00 05/10/17 08:47 (Robitussin Dm 200-20 Mg/10 ml Liq) 10 ml Q4H PRN PO 05/09/17 10:30 05/09/17 23:20 ([place] 5-325 Mg) 1 tab Q6H PRN PO 05/09/17 10:30 05/09/17 11:07 (Duoneb Neb) 1 ampule Q4HR NEB NEB 05/09/17 12:00 05/10/17 08:08 (Symbicort 160-4.5 Mcg Inh) 1 puff Q12H INH 05/09/17 11:00 05/09/17 23:18 A/P Assessment and Plan 41-year-old female with past medical history significant for COPD, hypertension and borderline diabetes mellitus presents to the ED with a 1 week history of worsening dyspnea and wheezing. Acute COPD Exacerbation: CXR images reviewed, shows mild left basilar airspace disease. CT-PA images reviewed, negative for PE, shows mild inferior lingula and RML consolidation; minimal bibasilar opacities primarily in the anterior upper lobes which may reflect volume loss or subtle inflammatory/infectious airspace disease. Patient afebrile, no leukocytosis, however in light of cough and subjective fevers/chills, will initiate antibiotics. -Started on Levaquin 750mg qd x5days with probiotic -Continue steroids with IV solumedrol 40mg q6h helen -Continue duonebs q4h helen and q4h prn -Started on Symbicort bid -Recommend outpatient f/up with property field adjuster Dr. Hardy after discharge -Symptoms much improved, O2 sat stable on room air Hypertensive Urgency secondary to Accelerated Hypertension: BP in the ED 235/ 125. Patient reports compliance with medications, recently started on hydralazine in addition to norvasc, lisinopril, HCTZ -Continue patient's home amlodipine 10mg qd, hydralazine 25mg qid, hydrochlorothiazide 25mg qd, lisinopril 40mg qd -BP still not controlled, increase hydralazine to 50mg qid -Continue clonidine prn -BP continues to be elevated however expect elevation while on steroids and nebs -Recommend patient keep BP log at home and f/up with PCP Borderline diabetes mellitus: patient recently told by her PCP she is borderline diabetic but does not require medications yet. -Expect BG to increase while on steroids -Monitor Accu-checks and cover with SSI DVT Prophylaxis: Heparin sq Discharge Planning Patient improved, can likely discharge this afternoon if continued improvement and after home nebulizer arranged. Discharge patient to home Condition on discharge: Improved Heart Healthy Diet as tolerated Ad Mally activity Rx written: Prednisone taper, Levaquin, Duonebs, Nebulizer machine, Hydralazine , Clonidine prn Follow-up with primary care physician within 2-3 days Follow up with property field adjuster Dr. Hardy within 1 week Anila Mayer PA-C May 10, 2017 10:38 am
[2017-05-10] MEDS ORDERED: NEBULIZER1 MI1 (10:41)
[2017-05-10] MEDS ORDERED: Albuterol-Ipratropium Neb NEB (10:48)
[2017-05-10] MEDS ORDERED: CLON.2 PO (10:48)
[2017-05-10] MEDS ORDERED: LEVA750T9 PO (10:48)
[2017-05-10] MEDS ORDERED: PRED20 PO (10:48)
[2017-05-10] MEDS ORDERED: Budeson-Formot 160-4.5 Mcg Inh INH (10:48)
[2017-05-10] MEDS ORDERED: HYDR-3800 PO (10:48)
--- NOTE | 2017-05-10 10:49 | HHI.DCPOC ---
Discharge Care Plan Diagnosis: (1) COPD exacerbation (2) Accelerated hypertension Your Health Problems Are: Cough Shortness of Breath Goals to Promote Your Health * To prevent worsening of your condition and complications * To maintain your health at the optimal level Directions to Meet Your Goals Take your medications as prescribed Follow your dietary instruction Follow activity as directed Keep your appointments as scheduled Take your immunizations and boosters as scheduled If your symptoms worsen call your PCP, if no PCP go to Urgent Care Center or Emergency Room Smoking is Dangerous to Your Health. Avoid second hand smoke Call the 24-hour hour crisis hotline for domestic abuse at Anila Mayer PA-C May 10, 2017 10:49 am
[2017-05-10 11:30] VITALS: BP 160/89; PULSE 84; RESP 18; TEMP 98; O2SAT 95
[2017-05-10] MEDS: BUDESONIDE-FORMOTEROL 160/4.5 MCG INHALER INH SCH (11:36)
== END 2017-05-10 12:04 | disposition home or self-care (01) ==
LOC: NEPE 15:51 → NEDA 20:18 → NEPHCDU 05-09
PROVIDERS: ADMIT Hospitalist; ATTEND Hospitalist
DX: J44.1 Chronic obstructive pulmonary disease with (acute) exacerbation (principal); I16.0 Hypertensive urgency; E11.9 Type 2 diabetes mellitus without complications; J98.11 Atelectasis; G47.30 Sleep apnea, unspecified; Z72.0 Tobacco use; Z90.710 Acquired absence of both cervix and uterus
CPT/HCPCS: 71020; 71275; 80048; 80053; 82948; 83735; 84484; 85025; 85610; 85730; 87804; 93005; 94640; 94664; 96372; 96374; 96375; 96376; 99285; G0378; J0360; J1644; J1815; J2920; J2930; Q9967

== ENCOUNTER 2017-08-14 19:02 | Emergency (ER) | payer OTHER ==
[~2017-08-14] VITALS: Ht 167.6 cm; Wt 122.0 kg
[~2017-08-14 19:02] MED LIST changes: +Albuterol-Ipratropium Neb NEB; +Budeson-Formot 160-4.5 Mcg Inh INH; +CLON.2 PO; -CLON0.2T PO; +HYDR-3800 PO; +LEVA750T9 PO; -METR0.7528 VAGINAL; +NEBULIZER1 MI1; +PRED20 PO
[2017-08-14 19:20] VITALS: BP 201/101; PULSE 87; RESP 18; TEMP 99.3; O2SAT 96
[2017-08-14] MEDS ORDERED: SODIUM CHLOR 0.9% 1000 ML INJ 1,000 ML IV SCH (19:56)
[2017-08-14] MEDS ORDERED: MORPHINE SULFATE 4 MG/ML INJ IV PUSH ONE (20:00)
[2017-08-14] MEDS ORDERED: ONDANSETRON HCL 4 MG/2 ML VIAL IVP ONE (20:00)
[2017-08-14] MEDS ORDERED: SODIUM CHLORIDE 0.9% FLUSH 10 ML FLUSH IV FLUSH PRN (20:00)
--- NOTE | 2017-08-14 20:05 | PD ---
HPI Chief Complaint: Flank/Kidney Pain Time Seen by Provider: 19:47 Travel History International Travel<30 days: No Contact w/Intl Traveler<30days: No Traveled to known affect area: No History of Present Illness HPI Patient is a 42-year-old female who presents the emergency room with complaints of right-sided abdominal and flank pain. Patient reports that for the past 4 days, she has been having intermittent right-sided lower groin pain rating to her right flank. Patient reports that her symptoms are sharp and stabbing when she has them, patient rates pain as moderate severe when she has any symptoms. Patient reports pain worse with movement. Patient denies any nausea or vomiting , denies any constipation or diarrhea with her symptoms. Patient denies any history of kidney stones, denies any dysuria, urinary urgency or frequency. PFSH Past Medical History Hx Anticoagulant Therapy: No Anemia: Yes Asthma: No Autoimmune Disease: No Blood Disorders: No Anxiety: No Depression: No Heart Rhythm Problems: No Cancer: No Cardiovascular Problems: No High Cholesterol: No Chemotherapy: No Chest Pain: No Congestive Heart Failure: No COPD: Yes Cerebrovascular Accident: No Diabetes: Yes Diminished Hearing: No Endocrine: No Glaucoma: No Genitourinary: No Hepatitis: No Hiatal Hernia: No Hypertension: Yes Immune Disorder: No Implanted Vascular Access Dvce: No Musculoskeletal: No Neurologic: No Psychiatric: No Reproductive: No Respiratory: Yes (COPD) Migraines: Yes Radiation Therapy: No Seizures: No Sleep Apnea: No Thyroid Disease: No PNEUMOCCOCAL Vaccine (Year): 2009 ?: Not Menopausal: Yes : 3 Para: 0 Miscarriage: 3 Ovarian Cysts: Yes Past Surgical History Abdominal Surgery: Yes (hernia repair & 04/2013.) AICD: No Arteriovenous Shunt: No Cholecystectomy: Yes Gynecologic Surgery: Yes (HYSTERECTOMY, LEFT SALPINGOTOMY AND LEFT OOPHORECTOMY ) Hysterectomy: Yes Insulin Pump: No Joint Replacement: No Pacemaker: No Other Surgery: Yes Social History Alcohol Use: Yes (occ) Tobacco Use: Yes Substance Use: No Allergies-Medications (Allergen,Severity, Reaction): Coded Allergies: naproxen (Unverified Allergy, Severe, SOB, 08/14/17) ALL NSAIDS penicillin G (Unverified Allergy, Severe, HIVES, SOB, 08/14/17) tomato (Unverified Allergy, Mild, ITCH, 08/14/17) aspirin (Unverified Adverse Reaction, Intermediate, "HEART RACES", 08/14/17) Reported Meds & Prescriptions Reported Meds & Active Scripts Active [Budeson-Formot 160-4.5 Mcg Inh] 60 PUFF Aero 1 Puff INH Q12H Hydralazine HCl 50 Mg Tablet 50 Mg PO Q6HR [Albuterol-Ipratropium Neb] 1 AMPULE Nebu 1 Ampule NEB Q4HR NEB PRN Nebulizer 1 Mis Mis Ea .ROUTE DIRECTED Reported Catapres (Clonidine) 0.3 Mg Tab 0.3 Mg PO BID Lopressor (Metoprolol Tartrate) 50 Mg Tab 25 Mg PO BID Norvasc (Amlodipine Besylate) 10 Mg Tab 10 Mg PO DAILY Hydrochlorothiazide 25 Mg Tab 25 Mg PO DAILY Ventolin Hfa 18 GM Inh (Albuterol Sulfate) 90 Mcg/Act Aer 1 Puff INH Q4H PRN Review of Systems General / Constitutional: No: Fever Eyes: No: Visual changes HENT: No: Headaches Cardiovascular: No: Chest Pain or Discomfort Respiratory: No: Shortness of Breath Gastrointestinal: Positive: Abdominal Pain, No: Nausea, Vomiting, Diarrhea, Constipation Genitourinary: Positive: Flank Pain, No: Dysuria Musculoskeletal: No: Pain Skin: No Rash Neurologic: No: Weakness Psychiatric: No: Depression Endocrine: No: Polydipsia Hematologic/Lymphatic: No: Easy Bruising Physical Exam Narrative GENERAL: mild distress SKIN: Focused skin assessment warm/dry. HEAD: Atraumatic. Normocephalic. EYES: Pupils equal and round. No scleral icterus. No injection or drainage. ENT: No nasal bleeding or discharge. Mucous membranes pink and moist. NECK: Trachea midline. No JVD. CARDIOVASCULAR: Regular rate and rhythm. No murmur appreciated. RESPIRATORY: No accessory muscle use. Clear to auscultation. Breath sounds equal bilaterally. GASTROINTESTINAL: Abdomen soft, non-tender, nondistended. Hepatic and splenic margins not palpable. Right-sided flank pain MUSCULOSKELETAL: No obvious deformities. No clubbing. No cyanosis. No edema. NEUROLOGICAL: Awake and alert. No obvious cranial nerve deficits. Motor grossly within normal limits. Normal speech. PSYCHIATRIC: Appropriate mood and affect; insight and judgment normal. Data Data Last Documented VS Vital Signs Date Time Temp Pulse Resp B/P (MAP) Pulse Ox O2 Delivery O2 Flow Rate FiO2 08/14/17 20:39 87 20 170/92 (118) 98 08/14/17 19:20 99.3 Orders Orders Complete Blood Count With Diff (08/14/17 19:56) Comprehensive Metabolic Panel (08/14/17 19:56) Prothrombin Time / Inr (Pt) (08/14/17 19:56) Act Partial Throm Time (Ptt) (08/14/17 19:56) Urinalysis - C+S If Indicated (08/14/17 19:56) Ct Abd/Pel W/O Iv Contrast (08/14/17 19:56) Iv Access Insert/Monitor (08/14/17 19:56) Ecg Monitoring (08/14/17 19:56) Oximetry (08/14/17 19:56) NPO (08/14/17 19:56) Morphine Inj (Morphine Inj) (08/14/17 20:00) Ondansetron Inj (Zofran Inj) (08/14/17 20:00) Sodium Chlor 0.9% 1000 Ml Inj (Ns 1000 M (08/14/17 19:56) Sodium Chloride 0.9% Flush (Ns Flush) (08/14/17 20:00) Ed Urine Pregnancytest Poc (08/14/17 19:57) Radiology Film Requests (08/14/17 ) Labs Laboratory Tests Test 08/14/17 20:20 08/14/17 20:55 White Blood Count 5.9 TH/MM3 Red Blood Count 4.99 MIL/MM3 Hemoglobin 14.2 GM/DL Hematocrit 43.5 % Mean Corpuscular Volume 87.2 FL Mean Corpuscular Hemoglobin 28.4 PG Mean Corpuscular Hemoglobin Concent 32.6 % Red Cell Distribution Width 13.7 % Platelet Count 210 TH/MM3 Mean Platelet Volume 9.3 FL Neutrophils (%) (Auto) 48.1 % Lymphocytes (%) (Auto) 41.0 % Monocytes (%) (Auto) 7.1 % Eosinophils (%) (Auto) 3.2 % Basophils (%) (Auto) 0.6 % Neutrophils # (Auto) 2.9 TH/MM3 Lymphocytes # (Auto) 2.4 TH/MM3 Monocytes # (Auto) 0.4 TH/MM3 Eosinophils # (Auto) 0.2 TH/MM3 Basophils # (Auto) 0.0 TH/MM3 CBC Comment DIFF FINAL Differential Comment Prothrombin Time 10.1 SEC Prothromb Time International Ratio 1.0 RATIO Activated Partial Thromboplast Time 26.0 SEC Blood Urea Nitrogen 21 MG/DL Creatinine 1.40 MG/DL Random Glucose 96 MG/DL Total Protein 7.2 GM/DL Albumin 3.3 GM/DL Calcium Level 8.9 MG/DL Alkaline Phosphatase 66 U/L Aspartate Amino Transf (AST/SGOT) 10 U/L Alanine Aminotransferase (ALT/SGPT) 15 U/L Total Bilirubin 0.3 MG/DL Sodium Level 141 MEQ/L Potassium Level 3.6 MEQ/L Chloride Level 108 MEQ/L Carbon Dioxide Level 28.1 MEQ/L Anion Gap 5 MEQ/L Estimat Glomerular Filtration Rate 50 ML/MIN MDM Medical Decision Making Medical Screen Exam Complete: Yes Emergency Medical Condition: Yes Medical Record Reviewed: Yes Interpretation(s) Vital Signs Date Time Temp Pulse Resp B/P (MAP) Pulse Ox O2 Delivery O2 Flow Rate FiO2 08/14/17 19:20 99.3 87 18 201/101 (134) 96 Differential Diagnosis Muscle skeletal pain, UTI, kidney stone, pyelonephritis, appendicitis Narrative Course During the course of the patients emergency department visit, the patients history, examination, and differential diagnosis were reviewed with the patient. The patient was placed on a site monitor with oximetry and frequent blood pressure monitoring. The patient had an IV access obtained and blood work sent for analysis. The patient was initially provided IVF, IV morphine for pain control The patients laboratory studies were reviewed and remarkable for: CBC & BMP Diagram 08/14/17 20:20 Total Protein 7.2, Albumin 3.3 L, Calcium Level 8.9, Alkaline Phosphatase 66, Aspartate Amino Transf (AST/SGOT) 10 L, Alanine Aminotransferase (ALT/SGPT) 15, Total Bilirubin 0.3 Radiology studies were reviewed and remarkable for: Last Impressions Abdomen/Pelvis CT 08/14/171955 Signed Impressions: Service Date/Time: Monday, August 14, 2017 20:02 - CONCLUSION: Complex multiloculated 10 cm mass is seen slightly to left of midline in the pelvis probably arising from the left adnexal region. Part of the loculation may be tube. There is no free fluid. David Sue MD FACR Patient with a complex multiloculated 10 cm mass seen in the left midline in the pelvis probably arising from the left adnexal region. Patient reports that she has had a history of a left-sided hysterectomy as well as a left-sided oophorectomy and left-sided salpingectomy [place] [address] Oconnor secondary to ovarian torsion. Patient reports that she did follow-up with a cardiovascular or nurse about 1 year ago, she does not remember who the cardiovascular or nurse was. Patient now with persistent pain to the right lower abdomen/pelvis, call me to OB hospitalist. Case reviewed with Dr. Obregon, ob hospitalist Patient had hysterectomy with aspiration of ovarian cysts bilaterally on July after review of records. Patient reports that she had a left-sided oophorectomy 6 months after her hysterectomy. Unsure etiology of pelvic mass. Patient is stable for discharge and for outpatient workup for her pelvic mass. Patient can follow-up as an outpatient with Dr. Kareem Mosley who is on-call tonight Plan to discharge patient's with strict instruction for follow-up with Dr. Kareem Mosley as this large pelvic mass is of concern. Patient will call first thing in the morning for follow up appointment Patient was given a copy of her studies as well as her CT report and cd with a copy of her ct was given to her at discharge. Patient understands the importance of following up with systems applications programming lead Diagnosis Primary Impression: Abdominal pain Qualified Codes: R10.31 - Right lower quadrant pain Additional Impression: Pelvic mass Referrals: Kareem Barton MD Patient Instructions: General Instructions, Narcotic given in the ED Departure Forms: Tests/Procedures, Work Release Enter return to work date: Aug 16, 2017 Additional Instructions: Please provide patient with a copy of their lab work and studies at discharge* * Please follow up with your primary care doctor in 2-3 days Return to the ER if symptoms worsen or progress Return to the ER as needed Please follow-up with cardiovascular or nurse as soon as possible as you have concerning findings of a large mass seen in your pelvis Disposition: 01 DISCHARGE HOME Condition: Stable Chantel Coellofer Carole DO Aug 14, 2017 20:05
[2017-08-14] MEDS ORDERED: CLON-481 PO (20:16)
[2017-08-14 20:33] LABS: AUTOMATED NEUTROPHIL # 2.9 TH/MM3 (1.8-7.7); BASOPHIL % 0.6 % (0.0-2.0); EOSINOPHIL # 0.2 TH/MM3 (0-0.4); EOSINOPHIL % 3.2 % (0.0-4.0); HEMATOCRIT 43.5 % (35.0-46.0); HEMOGLOBIN 14.2 GM/DL (11.6-15.3); LYMPHOCYTE # 2.4 TH/MM3 (1.0-4.8); MEAN CELL VOLUME 87.2 FL (80.0-100.0); MEAN CORPUSCULAR HEMOGLOBIN 28.4 PG (27.0-34.0); MEAN CORPUSCULAR HGB CONC 32.6 % (32.0-36.0); MEAN PLATELET VOLUME 9.3 FL (7.0-11.0); MONO % 7.1 % (0.0-8.0); MONOCYTE # 0.4 TH/MM3 (0-0.9); NEUT % 48.1 % (16.0-70.0); PLATELET COUNT 210 TH/MM3 (150-450); RED BLOOD COUNT 4.99 MIL/MM3 (4.00-5.30); RED CELL DISTRIBUTION WIDTH 13.7 % (11.6-17.2); WHITE BLOOD COUNT 5.9 TH/MM3 (4.0-11.0)
[2017-08-14 20:39] VITALS: BP 170/92; PULSE 87; RESP 20; O2SAT 98
--- NOTE | 2017-08-14 20:39 | RADRPT ---
EXAM DATE/TIME: 08/14/2017 20:02 This report includes an Addendum and supersedes previous reports for this exam. [facility] COMPARISON: No previous studies available for comparison. INDICATIONS : Right flank pain. ORAL CONTRAST: No oral contrast ingested. RADIATION DOSE: 27.64 CTDIvol (mGy) ; High dose protocol; Patient body habitus MEDICAL HISTORY : Hypercholesterolemia. Hernia, umbilical. SURGICAL HISTORY : Umbilical hernia repair. Hysterectomy.Cholecystectomy. ENCOUNTER: Initial ACUITY: 1 day PAIN SCALE: 7/10 LOCATION: Right flank TECHNIQUE: Volumetric scanning of the abdomen and pelvis was performed. Using automated exposure control and ad justment of the mA and/or kV according to patient size, radiation dose was kept as low as reasonably achievable to obtain optimal diagnostic quality images. DICOM format image data is available electro nically for review and comparison. FINDINGS: Portion of the upper abdomen contents visualized are unremarkable. Pancreas appears normal The adrenal glands are prominent but normal There are no renal stones identified There is no retroperitoneal adenopathy Midline abdominal hernia is present containing fat Complex multiloculated cystic mass is present in the pelvis measuring 10.6 cm. There is no free fluid Review of bone windows reveals only degenerative changes. CONCLUSION: Complex multiloculated 10 cm mass is seen slightly to left of midline in the pelvis p robably arising from the left adnexal region. Part of the loculation may be tube. There is no free fluid. David Sue MD FACR on August 14, 2017 at 20:34 Board Certified Radiologist. This report was verified electronically. ADDENDUM: Patient gives the history of complete hysterectomy with removal of the left tube and ovary. This has the appearance of an adnexal remnants. David Sue MD FACR on August 14, 2017 at 20:53 Board Certified Radiologist. This report was verified electronically.
[2017-08-14 20:41] VITALS: RESP 18
[2017-08-14 20:41] LABS: CHLORIDE 108 MEQ/L (98-107); SODIUM (NA) 141 MEQ/L (136-145)
[2017-08-14 20:44] LABS: ALBUMIN 3.3 GM/DL (3.4-5.0); BICARBONATE 28.1 MEQ/L (21.0-32.0); BLOOD UREA NITROGEN 21 MG/DL (7-18); CALCIUM 8.9 MG/DL (8.5-10.1); GLUCOSE,RANDOM 96 MG/DL (74-106)
[2017-08-14 20:46] LABS: PROTHROMBIN TIME - PATIENT 10.1 SEC (9.8-11.6)
[2017-08-14 20:47] LABS: ALT (GPT) 15 U/L (10-53); AST (GOT) 10 U/L (15-37); GLOMERULAR FILTRATION RATE 50 ML/MIN (>89)
[2017-08-14 20:49] LABS: TOTAL BILIRUBIN ADULT 0.3 MG/DL (0.2-1.0); TOTAL PROTEIN 7.2 GM/DL (6.4-8.2)
[2017-08-14 20:50] LABS: ALKALINE PHOSPHATASE 66 U/L (45-117)
[2017-08-14 21:08] LABS: BILIRUBIN, URINE NEG (NEG); BLOOD, URINE SMALL (NEG); GLUCOSE,URINE NEG (NEG); KETONE, URINE NEG (NEG); NITRITE,URINE NEG (NEG); PH, URINE 6.5 (5.0-8.5); URINE COLOR YELLOW (YELLW/STRAW); URINE LEUKOCYTE ESTERASE NEG (NEG)
[2017-08-14 21:16] LABS: WBC, URINE 0-2 /hpf (0-5)
[2017-08-14 21:33] VITALS: BP 170/92
== END 2017-08-14 21:36 | disposition home or self-care (01) ==
LOC: PHED 19:02
DX: R10.31 Right lower quadrant pain (principal); R19.00 Intra-abdominal and pelvic swelling, mass and lump, unspecified site; Z90.710 Acquired absence of both cervix and uterus; D64.9 Anemia, unspecified; J44.9 Chronic obstructive pulmonary disease, unspecified; E11.9 Type 2 diabetes mellitus without complications; I10 Essential (primary) hypertension; Z72.0 Tobacco use; Z79.899 Other long term (current) drug therapy
CPT/HCPCS: 74176; 80053; 81001; 85025; 85610; 85730; 96361; 96374; 96375; 99284; J2270; J2405; J7030

== ENCOUNTER 2017-09-12 16:47 | Emergency (ER) | payer MEDICAID, OTHER ==
[~2017-09-12] VITALS: Ht 167.6 cm; Wt 122.0 kg
[~2017-09-12 16:47] MED LIST changes: +CLON-481 PO; -CLON.2 PO; -LEVA750T9 PO; -LISI40TA PO; -PRED20 PO
[2017-09-12 16:51] VITALS: BP 213/102; PULSE 83; RESP 16; TEMP 99.3; O2SAT 96
[2017-09-12] MEDS ORDERED: TRIA37.53 (17:08)
[2017-09-12] MEDS ORDERED: FENO160T PO (17:08)
[2017-09-12] MEDS ORDERED: OMEP40CA2 PO (17:09)
[2017-09-12] MEDS ORDERED: VITA1000 PO (17:09)
[2017-09-12 17:13] VITALS: BP 205/109; PULSE 78; RESP 20; O2SAT 97
[2017-09-12 17:30] VITALS: O2SAT 98
[2017-09-12] MEDS ORDERED: SODIUM CHLOR 0.9% 1000 ML INJ 1,000 ML IV SCH (17:38)
[2017-09-12] MEDS ORDERED: traMADol HCL 50 MG TAB PO ONE (17:45)
[2017-09-12] MEDS ORDERED: SODIUM CHLORIDE 0.9% FLUSH 10 ML FLUSH IV FLUSH PRN (17:45)
--- NOTE | 2017-09-12 17:47 | PD ---
HPI Chief Complaint: Pain: Acute or Chronic Time Seen by Provider: 17:15 Travel History International Travel<30 days: No Contact w/Intl Traveler<30days: No Traveled to known affect area: No History of Present Illness HPI Patient 42-year-old female presents emergency department for evaluation of generalized body aches, patient states she is had these pains for 2 days, she states she has been outdoors more than usual but driving around her car. Does not have prolonged heat exposure. States it feels like a sharp pain in her mid and jumps from one extremity to the next. Not associate with the back pain shortness of breath abdominal pain chest pain headache nausea vomiting diarrhea constipation. She states she does have a history of high blood pressure is on multiple medications for this. States symptoms are moderate, intermittent, for the past 2 days, associated signs symptoms in context as above Incidentally discussed with patient her last visit where she was diagnosed with a mass in her low pelvis possibly ovarian in origin. She has not followed up with an DIRECTOR APPAREL yet, she states that she called the physician and they were told to call the wrong physician's office. PFSH Past Medical History Hx Anticoagulant Therapy: No Anemia: Yes Asthma: No Autoimmune Disease: No Blood Disorders: No Anxiety: Yes Depression: No Heart Rhythm Problems: No Cancer: No Cardiovascular Problems: Yes (HTN) High Cholesterol: No Chemotherapy: No Chest Pain: No Congestive Heart Failure: No COPD: Yes Cerebrovascular Accident: No Diminished Hearing: No Endocrine: No Glaucoma: No Genitourinary: No Hepatitis: No Hiatal Hernia: No Hypertension: Yes Immune Disorder: No Implanted Vascular Access Dvce: No Musculoskeletal: No Neurologic: No Psychiatric: No Reproductive: No Respiratory: Yes (COPD) Immunizations Current: Yes Migraines: Yes Radiation Therapy: No Seizures: No Sleep Apnea: No Thyroid Disease: No Tetanus Vaccination: < 5 Years Influenza Vaccination: No PNEUMOCCOCAL Vaccine (Year): 2009 ?: Not Menopausal: Yes : 3 Para: 0 Miscarriage: 3 Ovarian Cysts: Yes Past Surgical History Abdominal Surgery: Yes (UMBILICAL HERNIA REPAIR) AICD: No Arteriovenous Shunt: No Cholecystectomy: Yes Gynecologic Surgery: Yes (HYSTERECTOMY, LEFT SALPINGOTOMY AND LEFT OOPHORECTOMY ) Hysterectomy: Yes Insulin Pump: No Joint Replacement: No Pacemaker: No Other Surgery: Yes Family History Family Myocardial Infarction: Yes Social History Alcohol Use: Yes (OCCASIONALLY) Tobacco Use: Yes (OCCASIONALLY) Substance Use: No Allergies-Medications (Allergen,Severity, Reaction): Coded Allergies: naproxen (Unverified Allergy, Severe, SOB, 09/12/17) ALL NSAIDS penicillin G (Unverified Allergy, Severe, HIVES, SOB, 09/12/17) tomato (Unverified Allergy, Mild, ITCH, 09/12/17) aspirin (Unverified Adverse Reaction, Intermediate, "HEART RACES", 09/12/17) Reported Meds & Prescriptions Reported Meds & Active Scripts Active Gabapentin 300 Mg Cap 300 Mg PO BID [Budeson-Formot 160-4.5 Mcg Inh] 60 PUFF Aero 1 Puff INH Q12H Hydralazine HCl 50 Mg Tablet 50 Mg PO Q6HR [Albuterol-Ipratropium Neb] 1 AMPULE Nebu 1 Ampule NEB Q4HR NEB PRN Reported Vitamin D-1000 (Cholecalciferol) 1,000 Unit Tab 1,000 Units PO MONDAYS Omeprazole 40 Mg Cap 40 Mg PO DAILY Triamterene-Hydrochlorothiazide 37.5-25 Mg Cap 1 Cap DAILY Fenofibrate 160 Mg Tab 160 Mg PO DAILY Catapres (Clonidine) 0.3 Mg Tab 0.3 Mg PO BID Lopressor (Metoprolol Tartrate) 50 Mg Tab 100 Mg PO DAILY Norvasc (Amlodipine Besylate) 10 Mg Tab 10 Mg PO DAILY Ventolin Hfa 18 GM Inh (Albuterol Sulfate) 90 Mcg/Act Aer 1 Puff INH Q4H PRN Review of Systems Except as stated in HPI: all other systems reviewed are Neg Physical Exam Narrative GENERAL: Well-developed well-nourished no obvious distress, morbidly obese, quite pleasant SKIN: Focused skin assessment warm/dry. HEAD: Atraumatic. Normocephalic. EYES: Pupils equal and round. No scleral icterus. No injection or drainage. ENT: No nasal bleeding or discharge. Mucous membranes pink and moist. NECK: Trachea midline. No JVD. CARDIOVASCULAR: Regular rate and rhythm. No murmur appreciated. RESPIRATORY: No accessory muscle use. Clear to auscultation. Breath sounds equal bilaterally. GASTROINTESTINAL: Abdomen soft, non-tender, nondistended. Hepatic and splenic margins not palpable. MUSCULOSKELETAL: No obvious deformities. No clubbing. No cyanosis. No edema. Extremities are nontender. NEUROLOGICAL: Awake and alert. Cranial nerves II through XII are grossly intact and nonfocal, 5 out of 5 strength in all 4 extremities, cerebellar testing negative. PSYCHIATRIC: Appropriate mood and affect; insight and judgment normal. Data Data Last Documented VS Vital Signs Date Time Temp Pulse Resp B/P (MAP) Pulse Ox O2 Delivery O2 Flow Rate FiO2 09/12/17 19:32 77 20 228/111 (150) 97 09/12/17 18:50 Room Air 09/12/17 16:51 99.3 Orders Orders Complete Blood Count With Diff (09/12/17 17:38) Comprehensive Metabolic Panel (09/12/17 17:38) Urinalysis - C+S If Indicated (09/12/17 17:38) Iv Access Insert/Monitor (09/12/17 17:38) Ecg Monitoring (09/12/17 17:38) Oximetry (09/12/17 17:38) Sodium Chlor 0.9% 1000 Ml Inj (Ns 1000 M (09/12/17 17:38) Sodium Chloride 0.9% Flush (Ns Flush) (09/12/17 17:45) Tramadol (Ultram) (09/12/17 17:45) Creatine Kinase (Cpk) (09/12/17 17:38) Potassium Chloride (Kcl) (09/12/17 19:30) Ed Discharge Order (09/12/17 19:22) Labs Laboratory Tests Test 09/12/17 17:30 09/12/17 18:45 White Blood Count 6.3 TH/MM3 Red Blood Count 4.87 MIL/MM3 Hemoglobin 14.2 GM/DL Hematocrit 42.0 % Mean Corpuscular Volume 86.3 FL Mean Corpuscular Hemoglobin 29.0 PG Mean Corpuscular Hemoglobin Concent 33.7 % Red Cell Distribution Width 13.0 % Platelet Count 229 TH/MM3 Mean Platelet Volume 10.5 FL Neutrophils (%) (Auto) 40.5 % Lymphocytes (%) (Auto) 45.5 % Monocytes (%) (Auto) 5.6 % Eosinophils (%) (Auto) 3.2 % Basophils (%) (Auto) 5.2 % Neutrophils # (Auto) 2.6 TH/MM3 Lymphocytes # (Auto) 2.8 TH/MM3 Monocytes # (Auto) 0.4 TH/MM3 Eosinophils # (Auto) 0.2 TH/MM3 Basophils # (Auto) 0.3 TH/MM3 CBC Comment AUTO DIFF Differential Total Cells Counted 100 Neutrophils % (Manual) 36 % Lymphocytes % 57 % Monocytes % 4 % Eosinophils % 3 % Neutrophils # (Manual) 2.3 TH/MM3 Differential Comment FINAL DIFF MANUAL Platelet Estimate NORMAL Platelet Morphology Comment ENLARGED Red Cell Morphology Comment NORMAL Blood Urea Nitrogen 16 MG/DL Creatinine 1.10 MG/DL Random Glucose 123 MG/DL Total Protein 7.1 GM/DL Albumin 3.4 GM/DL Calcium Level 8.7 MG/DL Alkaline Phosphatase 64 U/L Aspartate Amino Transf (AST/SGOT) 20 U/L Alanine Aminotransferase (ALT/SGPT) 38 U/L Total Bilirubin 0.4 MG/DL Sodium Level 143 MEQ/L Potassium Level 3.1 MEQ/L Chloride Level 109 MEQ/L Carbon Dioxide Level 27.4 MEQ/L Anion Gap 7 MEQ/L Estimat Glomerular Filtration Rate 66 ML/MIN Total Creatine Kinase 112 U/L Urine Color YELLOW Urine Turbidity CLOUDY Urine pH 5.5 Urine Specific [place] 1.025 Urine Protein TRACE mg/dL Urine Glucose (UA) NEG mg/dL Urine Ketones NEG mg/dL Urine Occult Blood NEG Urine Nitrite NEG Urine Bilirubin NEG Urine Urobilinogen 1.0 MG/DL Urine Leukocyte Esterase NEG Urine RBC 0-3 /hpf Urine WBC 0-2 /hpf Urine Squamous Epithelial Cells > 8 /hpf Urine Amorphous Sediment FEW Urine Mucus FEW /lpf Microscopic Urinalysis Comment CULT NOT INDICATED MDM Medical Decision Making Medical Screen Exam Complete: Yes Emergency Medical Condition: Yes Differential Diagnosis Neuropathy, rhabdomyolysis, hypokalemia, body cramps, elevated blood pressure, hypertensive emergency has been excluded clinically Narrative Course Patient room to the emergency department, no sign symptoms to suggest endorgan failure. There is therefore no indication to lower her blood pressure acutely. Her basic labs are reassuring, she does have a mildly decreased potassium so I am not so sure that this is the cause of her symptoms, she is a prediabetic morbidly obese neuropathy is a possibility as well. I do not see evidence for medical emergency in this patient this time and have not identified the cause of her symptoms today. This was discussed with her and I recommended she follow -up with a primary care physician for further evaluation. 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 She is stable for discharge at this time. Discussed possibility for trial and she is agreeable Diagnosis Primary Impression: Body aches Additional Impression: Elevated blood pressure reading Additional Instructions: Follow-up with your primary care physician within 1 week to discuss her blood pressure. Take all your blood pressure medications as prescribed. Med/Other Pt SpecificInfo: Prescription(s) given Scripts Gabapentin (Gabapentin) 300 Mg Cap 300 MG PO BID, #60 CAP 0 Refills Prov: Rom Rodriguez MD 09/12/17 Disposition: 01 DISCHARGE HOME Condition: Stable Rom Rodriguez MD September 12, 2017 17:47
[2017-09-12 18:08] VITALS: BP 203/102; PULSE 78; RESP 20; O2SAT 97
[2017-09-12 18:09] LABS: AUTOMATED NEUTROPHIL # 2.6 TH/MM3 (1.8-7.7); BASOPHIL # 0.3 TH/MM3 (0-0.2); BASOPHIL % 5.2 % (0.0-2.0); EOSINOPHIL # 0.2 TH/MM3 (0-0.4); EOSINOPHIL % 3.2 % (0.0-4.0); HEMOGLOBIN 14.2 GM/DL (11.6-15.3); LYMPH % 45.5 % (9.0-44.0); LYMPHOCYTE # 2.8 TH/MM3 (1.0-4.8); MEAN CELL VOLUME 86.3 FL (80.0-100.0); MEAN CORPUSCULAR HGB CONC 33.7 % (32.0-36.0); MEAN PLATELET VOLUME 10.5 FL (7.0-11.0); MONO % 5.6 % (0.0-8.0); MONOCYTE # 0.4 TH/MM3 (0-0.9); NEUT % 40.5 % (16.0-70.0); PLATELET COUNT 229 TH/MM3 (150-450); RED BLOOD COUNT 4.87 MIL/MM3 (4.00-5.30); WHITE BLOOD COUNT 6.3 TH/MM3 (4.0-11.0)
[2017-09-12 18:20] LABS: CHLORIDE 109 MEQ/L (98-107); SODIUM (NA) 143 MEQ/L (136-145)
[2017-09-12 18:23] LABS: CALCIUM 8.7 MG/DL (8.5-10.1)
[2017-09-12 18:24] LABS: ALBUMIN 3.4 GM/DL (3.4-5.0); BICARBONATE 27.4 MEQ/L (21.0-32.0); BLOOD UREA NITROGEN 16 MG/DL (7-18); GLUCOSE,RANDOM 123 MG/DL (74-106)
[2017-09-12 18:27] LABS: ALT (GPT) 38 U/L (10-53); AST (GOT) 20 U/L (15-37); GLOMERULAR FILTRATION RATE 66 ML/MIN (>89)
[2017-09-12 18:29] LABS: TOTAL BILIRUBIN ADULT 0.4 MG/DL (0.2-1.0); TOTAL PROTEIN 7.1 GM/DL (6.4-8.2)
[2017-09-12 18:30] LABS: ALKALINE PHOSPHATASE 64 U/L (45-117)
[2017-09-12 18:38] LABS: LYMPHOCYTES 57 % (9-44); MONOCYTES 4 % (0-8); NEUTROPHIL # MANUAL DIFF 2.3 TH/MM3 (1.8-7.7); POLYS (SEG NEUTROPHILS) 36 % (16-70)
[2017-09-12 18:50] VITALS: BP 207/99; PULSE 87; RESP 20; O2SAT 96
[2017-09-12 18:58] LABS: BILIRUBIN, URINE NEG (NEG); BLOOD, URINE NEG (NEG); GLUCOSE,URINE NEG (NEG); KETONE, URINE NEG (NEG); NITRITE,URINE NEG (NEG); PH, URINE 5.5 (5.0-8.5); URINE COLOR YELLOW (YELLW/STRAW); URINE LEUKOCYTE ESTERASE NEG (NEG)
[2017-09-12 19:09] LABS: AMORPHOUS SEDIMENT, URINE FEW; MUCUS URINE FEW /lpf (OCC); RBC, URINE 0-3 /hpf (0-3); SQUAMOUS EPITHELIAL CELL URINE > 8 /hpf (0-5); WBC, URINE 0-2 /hpf (0-5)
[2017-09-12] MEDS ORDERED: GABA300C5 PO (19:26)
[2017-09-12] MEDS ORDERED: POTASSIUM CHLORIDE 20 MEQ CONTROLLED RELEASE TAB PO ONE (19:30)
[2017-09-12 19:32] VITALS: BP 228/111
== END 2017-09-12 19:45 | disposition home or self-care (01) ==
LOC: PHED 16:47
DX: R52 Pain, unspecified (principal); R03.0 Elevated blood-pressure reading, without diagnosis of hypertension; E66.01 Morbid (severe) obesity due to excess calories; D64.9 Anemia, unspecified; F41.9 Anxiety disorder, unspecified; I10 Essential (primary) hypertension; J44.9 Chronic obstructive pulmonary disease, unspecified; Z72.0 Tobacco use; Z79.51 Long term (current) use of inhaled steroids
CPT/HCPCS: 80053; 81001; 82550; 85007; 85027; 96360; 99284; J7030

== ENCOUNTER 2017-10-16 00:49 | Emergency (ER) | payer OTHER ==
[~2017-10-16] VITALS: Ht 167.6 cm; Wt 125.2 kg
[~2017-10-16 00:49] MED LIST changes: +FENO160T PO; +GABA300C5 PO; -HYDR25TA5 PO; -NEBULIZER1 MI1; +OMEP40CA2 PO; +TRIA37.53; +VITA1000 PO
[2017-10-16 00:51] VITALS: BP 198/97; PULSE 83; RESP 18; TEMP 98.4; O2SAT 95
--- NOTE | 2017-10-16 01:10 | PD ---
HPI Chief Complaint: Respiratory Symptoms Time Seen by Provider: 00:58 Travel History International Travel<30 days: No Contact w/Intl Traveler<30days: No Traveled to known affect area: No History of Present Illness HPI 42-year-old female presented the ER for evaluation of shortness of breath when acute onset. Patient is a history of COPD takes albuterol inhaler as well as albuterol nebulized and Symbicort, she says she has been using her albuterol inhaler with minimal help, been having shortness of breath for the last 2 days associated with cough that is productive of yellow sputum, no fevers chills or night sweats, she has a history of hypertension that is going patient not well controlled with medications. Patient denies any chest pain or sweating or palpitations or headache or motor or sensory loss. PFSH Past Medical History Hx Anticoagulant Therapy: No Anemia: Yes Asthma: No Autoimmune Disease: No Blood Disorders: No Anxiety: Yes Depression: No Heart Rhythm Problems: No Cancer: No Cardiovascular Problems: Yes ("Weak heart muscle") High Cholesterol: No Chemotherapy: No Chest Pain: No Congestive Heart Failure: No COPD: Yes Cerebrovascular Accident: No Diminished Hearing: No Endocrine: No Glaucoma: No Genitourinary: No Hepatitis: No Hiatal Hernia: No Hypertension: Yes Immune Disorder: No Implanted Vascular Access Dvce: No Musculoskeletal: No Neurologic: No Psychiatric: No Reproductive: No Respiratory: Yes (COPD ) Immunizations Current: Yes Migraines: Yes Radiation Therapy: No Seizures: No Sleep Apnea: No Thyroid Disease: No PNEUMOCCOCAL Vaccine (Year): 2009 Menopausal: Yes : 3 Para: 0 Miscarriage: 3 Ovarian Cysts: Yes Past Surgical History Abdominal Surgery: Yes (UMBILICAL HERNIA REPAIR) AICD: No Arteriovenous Shunt: No Cholecystectomy: Yes Gynecologic Surgery: Yes (HYSTERECTOMY, LEFT SALPINGOTOMY AND LEFT OOPHORECTOMY ) Hysterectomy: Yes Insulin Pump: No Joint Replacement: No Pacemaker: No Other Surgery: Yes Social History Alcohol Use: Yes (OCCASIONALLY) Tobacco Use: Yes (OCCASIONALLY) Substance Use: No Allergies-Medications (Allergen,Severity, Reaction): Coded Allergies: naproxen (Verified Allergy, Severe, SOB, 10/16/17) ALL NSAIDS penicillin G (Verified Allergy, Severe, HIVES, SOB, 10/16/17) tomato (Verified Allergy, Mild, ITCH, 10/16/17) aspirin (Verified Adverse Reaction, Intermediate, "HEART RACES", 10/16/17) Reported Meds & Prescriptions Reported Meds & Active Scripts Active [Budeson-Formot 160-4.5 Mcg Inh] 60 PUFF Aero 1 Puff INH Q12H Hydralazine HCl 50 Mg Tablet 50 Mg PO Q6HR [Albuterol-Ipratropium Neb] 1 AMPULE Nebu 1 Ampule NEB Q4HR NEB PRN Reported Vitamin D-1000 (Cholecalciferol) 1,000 Unit Tab 1,000 Units PO MONDAYS Omeprazole 40 Mg Cap 40 Mg PO DAILY Triamterene-Hydrochlorothiazide 37.5-25 Mg Cap 1 Cap DAILY Fenofibrate 160 Mg Tab 160 Mg PO DAILY Catapres (Clonidine) 0.3 Mg Tab 0.3 Mg PO BID Lopressor (Metoprolol Tartrate) 50 Mg Tab 100 Mg PO DAILY Norvasc (Amlodipine Besylate) 10 Mg Tab 10 Mg PO DAILY Ventolin Hfa 18 GM Inh (Albuterol Sulfate) 90 Mcg/Act Aer 1 Puff INH Q4H PRN Review of Systems Except as stated in HPI: all other systems reviewed are Neg Physical Exam Narrative GENERAL: Alert oriented 3 no acute distress SKIN: Focused skin assessment warm/dry. HEAD: Atraumatic. Normocephalic. EYES: Pupils equal and round. No scleral icterus. No injection or drainage. ENT: No nasal bleeding or discharge. Mucous membranes pink and moist. NECK: Trachea midline. No JVD. CARDIOVASCULAR: Regular rate and rhythm. No murmur appreciated. RESPIRATORY: Bilateral expiratory wheezing. No accessory muscle use speaks in full sentences, breath sounds equal bilaterally. GASTROINTESTINAL: Abdomen soft, non-tender, nondistended. Hepatic and splenic margins not palpable. MUSCULOSKELETAL: No obvious deformities. No clubbing. No cyanosis. No edema. NEUROLOGICAL: Awake and alert. No obvious cranial nerve deficits. Motor grossly within normal limits. Normal speech. PSYCHIATRIC: Appropriate mood and affect; insight and judgment normal. Data Data Last Documented VS Vital Signs Date Time Temp Pulse Resp B/P (MAP) Pulse Ox O2 Delivery O2 Flow Rate FiO2 10/16/17 02:21 83 20 181/90 (120) 95 Room Air 10/16/17 00:51 98.4 Orders Orders Electrocardiogram (10/16/17 01:05) Complete Blood Count With Diff (10/16/17 01:05) Comprehensive Metabolic Panel (10/16/17 01:05) Chest, Pa & Lat (10/16/17 01:05) Ecg Monitoring (10/16/17 01:05) Iv Access Insert/Monitor (10/16/17 01:05) Oximetry (10/16/17 01:05) Oxygen Administration (10/16/17 01:05) Methylprednisolone So Succ Inj (Solumedr (10/16/17 01:15) Albuterol-Ipratropium Neb (Duoneb Neb) (10/16/17 01:15) Sodium Chloride 0.9% Flush (Ns Flush) (10/16/17 01:15) Albuterol-Ipratropium Neb (Duoneb Neb) (10/16/17 03:00) Labs Laboratory Tests Test 10/16/17 01:15 White Blood Count 8.4 TH/MM3 Red Blood Count 4.77 MIL/MM3 Hemoglobin 14.1 GM/DL Hematocrit 41.8 % Mean Corpuscular Volume 87.7 FL Mean Corpuscular Hemoglobin 29.5 PG Mean Corpuscular Hemoglobin Concent 33.6 % Red Cell Distribution Width 13.8 % Platelet Count 227 TH/MM3 Mean Platelet Volume 10.3 FL Neutrophils (%) (Auto) 57.8 % Lymphocytes (%) (Auto) 32.0 % Monocytes (%) (Auto) 4.1 % Eosinophils (%) (Auto) 4.1 % Basophils (%) (Auto) 2.0 % Neutrophils # (Auto) 4.9 TH/MM3 Lymphocytes # (Auto) 2.7 TH/MM3 Monocytes # (Auto) 0.3 TH/MM3 Eosinophils # (Auto) 0.3 TH/MM3 Basophils # (Auto) 0.2 TH/MM3 CBC Comment DIFF FINAL Differential Comment Blood Urea Nitrogen 12 MG/DL Creatinine 0.98 MG/DL Random Glucose 134 MG/DL Total Protein 7.3 GM/DL Albumin 3.3 GM/DL Calcium Level 8.7 MG/DL Alkaline Phosphatase 75 U/L Aspartate Amino Transf (AST/SGOT) 22 U/L Alanine Aminotransferase (ALT/SGPT) 23 U/L Total Bilirubin 0.4 MG/DL Sodium Level 141 MEQ/L Potassium Level 4.3 MEQ/L Chloride Level 109 MEQ/L Carbon Dioxide Level 24.7 MEQ/L Anion Gap 7 MEQ/L Estimat Glomerular Filtration Rate 75 ML/MIN [facility] Medical Decision Making Medical Screen Exam Complete: Yes Emergency Medical Condition: Yes Differential Diagnosis COPD exacerbation, pneumonia, pneumothorax. Narrative Course 42-year-old female with history of COPD here for wheezing and shortness of breath. Cough productive yellow sputum. Patient was given 3 neb treatments she dramatically improved, she currently not wheezing, saturating percent on room air not in acute distress and speaks in full sentences. Vitals are stable , she is x-ray shows no abnormalities, labs are within normal limits. I will discharge the patient with a course of antibiotics and steroids to follow-up with her primary care physician. I also explained the patient to return to ER if symptoms change or do not improve. Laboratory Tests Test 10/16/17 01:15 White Blood Count 8.4 TH/MM3 Red Blood Count 4.77 MIL/MM3 Hemoglobin 14.1 GM/DL Hematocrit 41.8 % Mean Corpuscular Volume 87.7 FL Mean Corpuscular Hemoglobin 29.5 PG Mean Corpuscular Hemoglobin Concent 33.6 % Red Cell Distribution Width 13.8 % Platelet Count 227 TH/MM3 Mean Platelet Volume 10.3 FL Neutrophils (%) (Auto) 57.8 % Lymphocytes (%) (Auto) 32.0 % Monocytes (%) (Auto) 4.1 % Eosinophils (%) (Auto) 4.1 % Basophils (%) (Auto) 2.0 % Neutrophils # (Auto) 4.9 TH/MM3 Lymphocytes # (Auto) 2.7 TH/MM3 Monocytes # (Auto) 0.3 TH/MM3 Eosinophils # (Auto) 0.3 TH/MM3 Basophils # (Auto) 0.2 TH/MM3 CBC Comment DIFF FINAL Differential Comment Blood Urea Nitrogen 12 MG/DL Creatinine 0.98 MG/DL Random Glucose 134 MG/DL Total Protein 7.3 GM/DL Albumin 3.3 GM/DL Calcium Level 8.7 MG/DL Alkaline Phosphatase 75 U/L Aspartate Amino Transf (AST/SGOT) 22 U/L Alanine Aminotransferase (ALT/SGPT) 23 U/L Total Bilirubin 0.4 MG/DL Sodium Level 141 MEQ/L Potassium Level 4.3 MEQ/L Chloride Level 109 MEQ/L Carbon Dioxide Level 24.7 MEQ/L Anion Gap 7 MEQ/L Estimat Glomerular Filtration Rate 75 ML/MIN Last 24 hours Impressions Chest X-Ray 10/16/17 0105 Signed Impressions: CONCLUSION: 1. No acute intrathoracic disease. 2. Stable chronic interstitial changes as well as stable cardiomegaly. Diagnosis Primary Impression: COPD (chronic obstructive pulmonary disease) Qualified Codes: J44.9 - Chronic obstructive pulmonary disease, unspecified Additional Instructions: Follow-up with primary care physician and return to ER if symptoms change or do not improve. Scripts Methylprednisolone Dosepak (Medrol Dosepak) 4 Mg Dspk 4 MG PO DIRECTED, #1 DSPK 0 Refills Per Pharmacist direction Prov: Ranjit Madison MD 10/16/17 Azithromycin (Zithromax Z-Wiliam) 250 Mg Dspk 250 MG PO DIRECTED for Infection, #1 DSPK 0 Refills 500 MG (2 tabs) day 1, then 1 tab days 2-5. Prov: Ranjit Madison MD 10/16/17 Disposition: 01 DISCHARGE HOME Condition: Stable Ranjit Madison MD Oct 16, 2017 01:10
[2017-10-16] MEDS ORDERED: methylPREDNISolone SOD SUCC 125 MG/2 ML VIAL IV PUSH ONE (01:15)
[2017-10-16] MEDS ORDERED: SODIUM CHLORIDE 0.9% FLUSH 10 ML FLUSH IVF PRN (01:15)
[2017-10-16] MEDS: RESP: ALBUTEROL 2.5 MG/IPRATROPIUM 0.5 MG NEB (SCH) INH ×2 (01:16→01:17)
[2017-10-16 01:26] VITALS: O2SAT 98
[2017-10-16 01:41] LABS: AUTOMATED NEUTROPHIL # 4.9 TH/MM3 (1.8-7.7); BASOPHIL # 0.2 TH/MM3 (0-0.2); EOSINOPHIL # 0.3 TH/MM3 (0-0.4); EOSINOPHIL % 4.1 % (0.0-4.0); HEMATOCRIT 41.8 % (35.0-46.0); HEMOGLOBIN 14.1 GM/DL (11.6-15.3); LYMPHOCYTE # 2.7 TH/MM3 (1.0-4.8); MEAN CELL VOLUME 87.7 FL (80.0-100.0); MEAN CORPUSCULAR HEMOGLOBIN 29.5 PG (27.0-34.0); MEAN CORPUSCULAR HGB CONC 33.6 % (32.0-36.0); MEAN PLATELET VOLUME 10.3 FL (7.0-11.0); MONO % 4.1 % (0.0-8.0); MONOCYTE # 0.3 TH/MM3 (0-0.9); NEUT % 57.8 % (16.0-70.0); PLATELET COUNT 227 TH/MM3 (150-450); RED BLOOD COUNT 4.77 MIL/MM3 (4.00-5.30); RED CELL DISTRIBUTION WIDTH 13.8 % (11.6-17.2); WHITE BLOOD COUNT 8.4 TH/MM3 (4.0-11.0)
[2017-10-16 01:51] LABS: CHLORIDE 109 MEQ/L (98-107); SODIUM (NA) 141 MEQ/L (136-145)
[2017-10-16 01:55] LABS: ALBUMIN 3.3 GM/DL (3.4-5.0); BICARBONATE 24.7 MEQ/L (21.0-32.0); CALCIUM 8.7 MG/DL (8.5-10.1)
[2017-10-16 01:56] LABS: BLOOD UREA NITROGEN 12 MG/DL (7-18); GLUCOSE,RANDOM 134 MG/DL (74-106)
[2017-10-16 01:59] LABS: ALT (GPT) 23 U/L (10-53); AST (GOT) 22 U/L (15-37); CREATININE 0.98 MG/DL (0.50-1.00); GLOMERULAR FILTRATION RATE 75 ML/MIN (>89)
[2017-10-16 02:00] LABS: TOTAL BILIRUBIN ADULT 0.4 MG/DL (0.2-1.0); TOTAL PROTEIN 7.3 GM/DL (6.4-8.2)
[2017-10-16 02:01] LABS: ALKALINE PHOSPHATASE 75 U/L (45-117)
--- NOTE | 2017-10-16 02:15 | RADRPT ---
EXAM DATE: 10/16/2017 2:09 AM EDT AGE/SEX: 42 years / Female INDICATIONS: Shortness of breath and wheezing. CLINICAL DATA: This is the patient's initial encounter. Patient reports that signs and symptoms have been present for 2 days and indicates a pain score of 0/10. MEDICAL/SURGICAL HISTORY: Chronic obstructive pulmonary disease. None. COMPARISON: [facility] [place], CHEST PA & LAT, 05/08/2017. . FINDINGS: PA and lateral views of the chest demonstrate the lungs to be symmetrically aerated without evidence of mass, infiltrate or effusion. Stable interstitial changes noted bilaterally. The heart size is en larged but stable compared to the prior study.. Osseous structures are intact. No significant changes . CONCLUSION: 1. No acute intrathoracic disease. 2. Stable chronic interstitial changes as well as stable cardiomegaly. Electronically signed by: Ras Moore MD 10/16/2017 2:14 AM EDT
[2017-10-16 02:21] VITALS: BP 181/90; PULSE 83; RESP 20; O2SAT 95
[2017-10-16] MEDS ORDERED: RESP: ALBUTEROL 2.5 MG/IPRATROPIUM 0.5 MG NEB (SCH) NEB ONE (03:00)
[2017-10-16] MEDS ORDERED: ZITHTAB PO (03:02)
[2017-10-16] MEDS ORDERED: MEDR4PAK PO (03:02)
[2017-10-16 03:34] VITALS: BP 193/105
--- NOTE | 2017-10-16 18:43 | EKG ---
Date Performed: 10/16/2017 Time Performed: 01:40:47 PTAGE: 42 years EKG: Sinus rhythm LEFT AXIS DEVIATION LEFT VENTRICULAR HYPERTROPHY AND ST-T CHANGE ABNORMAL ECG PREVIOUS TRACING : 05/08/2017 16.23 Since the previous tracing, no significant change noted DOCTOR: Smitha Crump Interpretating Date/Time 10/16/2017 18:41:25
== END 2017-10-16 03:37 | disposition home or self-care (01) ==
LOC: PHED 00:49
DX: J44.9 Chronic obstructive pulmonary disease, unspecified (principal); F41.9 Anxiety disorder, unspecified; I10 Essential (primary) hypertension; Z72.0 Tobacco use
CPT/HCPCS: 71046; 80053; 85025; 93005; 94640; 94664; 96374; 99285; J2930